=== PATIENT | female | born 1940 | race Caucasian/White ===

== ENCOUNTER 2022-01-29 16:14 | Inpatient (IN) | payer MEDICARE ==
--- NOTE | 2022-01-29 18:49 | ED ---
General Adult HPI - General Chief complaint: Weakness Stated complaint: Weakness,lower back pain Time Seen by Provider: 01/29/22 18:19 Source: patient Mode of arrival: ambulatory Limitations: no limitations - History of Present Illness Initial comments: This is an 81-year-old female with a past medical history including recently diagnosed metastatic bone cancer presents emergency Department with her son for increasing pain and discomfort in the lower pelvis secondary to the bone cancer. There is reported the patient has not been eating or drinking over the last several days and has been unable to sit upright secondary to pain. The patient's son stated that the patient was seen and evaluated by the oncologist yesterday however she stated that nothing else was done at this time. The pain medications were slightly changed at this time. The son felt as if the patient was not improving and was deteriorating in front of his eyes without any ass istance being done. The patient was brought in by the son for a second opinion and reevaluation here in the emergency department as well as a different oncology team. The patient herself reported continued pain on the inferior gluteal folds as a spot of continued pain. The patient stated that she has had an appetite and has not ate or drank in the last several days. The patient denied any other acute pain at this time. - Related Data Home Medications Medication Instructions Recorded Confirmed Hydrocodone/Acetaminophen 1 tab PO Q6H PRN 01/29/22 01/29/22 [Hydrocodone/Acetaminophen 5-325] Meloxicam [Mobic] 15 mg PO DAILY 01/29/22 01/29/22 traMADol HCL 50 mg PO TID 01/29/22 01/29/22 Allergies Allergy/AdvReac Type Severity Reaction Status Date / Time No Known Allergies Allergy Verified 01/29/22 20:08 Review of Systems ROS Statement: Those systems with pertinent positive or pertinent negative responses have been documented in the HPI. ROS Other: All systems not noted in ROS Statement are negative. Past Medical History Past Medical History: Cancer Additional Past Medical History / Comment(s): kidney disease, History of Any Multi-Drug Resistant Organisms: None Reported Past Surgical History: No Surgical Hx Reported Past Psychological History: No Psychological Hx Reported Smoking Status: Never smoker Past Alcohol Use History: None Reported Past Drug Use History: None Reported General Exam Limitations: no limitations General appearance: alert, in no apparent distress Head exam: Present: atraumatic, normocephalic Eye exam: Present: normal appearance, PERRL Pupils: Present: normal accommodation ENT exam: Present: normal exam, normal oropharynx, mucous membranes moist Neck exam: Present: normal inspection, full ROM Respiratory exam: Present: normal lung sounds bilaterally Cardiovascular Exam: Present: regular rate, normal rhythm, normal heart sounds GI/Abdominal exam: Present: soft, normal bowel sounds Extremities exam: Present: normal inspection, full ROM Back exam: Present: normal inspection, full ROM, tenderness (Tenderness noted to the inferior lower portion of the posterior pelvis at the posterior aspect of the proximal femur on the right side) Neurological exam: Present: alert, oriented X3, CN II-XII intact Psychiatric exam: Present: normal affect, normal mood Skin exam: Present: warm, dry Course Vital Signs 01/29/22 17:57 Temperature 98 F Pulse Rate 135 H Respiratory 18 Rate Blood Pressure 121/71 O2 Sat by Pulse 96 Oximetry EKG Findings - EKG Comments: EKG Findings:: An EKG was obtained was read by myself. EKG showed a rate of 114, LA interval of 125 and QRS duration of 89. He QTC was 36. This EKG showed a sinus tachycardia without any ST segment elevations or depressions noted. Medical Decision Making - Medical Decision Making The patient was seen and evaluated emergency department. Physical exam, the pat ient was resting in bed without any acute distress. Vital signs admission were stable and within normal limits. The patient was tachycardic on arrival however on my evaluation her heart rate was 98. Due to the nature the patient's complaints, laboratory workup was obtained and a computed tomography scan of the abdomen and pelvis was obtained for a baseline as I could not see any old records at this time. The patient as well as her son were told due to the patient stated thrive that the patient could be admitted to the hospital and will be seen by oncology. Laboratory workup was largely within normal limits. Computed tomography scan was still pending at this time. The patient is not be ing followed by her primary care physician here in the area and will be covered by [facility]. Whitney Kimbrough was contacted at 1943 accepted the patient for admission. Oncology was placed and consul at this time. The patient's son and patient were told this plan and were agreeable. The patient was admitted in stable condition. - Lab Data Result diagrams: 01/29/22 18:33 Lab Results 01/29/22 01/29/22 01/29/22 Range/Units 18:33 18:33 19:36 Sodium 140 (137-145) mmol/L Potassium 4.6 (3.5-5.1) mmol/L Chloride 103 (98-107) mmol/L Carbon Dioxide 27 (22-30) mmol/L Anion Gap 10 mmol/L BUN 21 H (7-17) mg/dL Creatinine 0.75 (0.52-1.04) mg/dL Est GFR (CKD-EPI)AfAm 85 (>60 ml/min/1.73 sqM) Est GFR (CKD-EPI)NonAf 74 (>60 ml/min/1.73 sqM) Glucose 104 H (74-99) mg/dL Calcium 9.5 (8.4-10.2) mg/dL Magnesium 2.2 (1.6-2.3) mg/dL Total Bilirubin 1.0 (0.2-1.3) mg/dL AST 45 H (14-36) U/L ALT 17 (4-34) U/L Alkaline Phosphatase 379 H (38-126) U/L Troponin I 0.021 (0.000-0.034) ng/mL NT-Pro-B Natriuret Pep 449 pg/mL Total Protein 7.2 (6.3-8.2) g/dL Albumin 4.0 (3.5-5.0) g/dL Lipase 98 (23-300) U/L Disposition Clinical Impression: Failure to thrive, Metastatic cancer Disposition: ADMITTED IP TO [facility] Condition: Stable Is patient prescribed a controlled substance at d/c from ED?: No Referrals: Jose Juan Waters MD [Primary Care Provider] - 1-2 days Time of Disposition: 19:43 Decision to Admit Reason: Admit from EC Decision Date: 01/29/22 Decision Time: 19:43
[2022-01-29 19:20] LABS: Calcium 9.5 mg/dL (8.4-10.2); Magnesium 2.2 mg/dL (1.6-2.3); Potassium 4.6 mmol/L (3.5-5.1); Total Protein 7.2 g/dL (6.3-8.2)
--- NOTE | 2022-01-29 19:50 | XR ---
EXAMINATION TYPE: XR chest 2V DATE OF EXAM: 01/29/2022 COMPARISON: NONE HISTORY: Weakness TECHNIQUE: 2 views FINDINGS: There is no heart failure nor confluent pneumonic infiltrate. Heart size is normal. There a re no hilar masses. Costophrenic angles show no pleural fluid. There is mild subsegmental atelectasis left lung base. IMPRESSION: Minimal subsegmental atelectasis left lung base.
[2022-01-29] MEDS ORDERED: NALOXONE 0.4 MG/ML 1 ML VIAL IV PRN (19:53)
--- NOTE | 2022-01-29 21:06 | CT ---
EXAMINATION TYPE: CT abdomen pelvis w con DATE OF EXAM: 01/29/2022 COMPARISON: None HISTORY: pelvic pain. recent metastatic ca dx CT DLP: 715.9 mGycm Automated exposure control for dose reduction was used. CONTRAST: Performed with IV Contrast, patient injected with 90 mL of Isovue 300. Images obtained from the diaphragm to the floor of the pelvis with the IV contrast. There is mild left pleural effusion. There is some interstitial infiltrate and atelectasis at the pos terior lung bases. Heart size is normal. No pericardial effusion. Liver and spleen are intact. The bile ducts are not dilated. There is large gallbladder that measures 4.5 cm in diameter. There is no evidence of pancreatic mass. Stomach is intact. There is no adrenal mass. Kidneys show satisfactory contrast opacification. No hydronephrosis. Ureter s are not dilated. Delayed images show normal renal excretion. There is a dilated rectum with apparen t fecal impaction. Rectum measures 7.6 cm. There is dilated urinary bladder that measures 17 cm in le ngth. No mesenteric edema. No ascites or free air. There are some colonic diverticula without diverticuliti s. There is patchy osteosclerotic changes in the lumbar spine and bony pelvis. There is mild compression deformity at L3 and L2 up to 20%. There is T10 wedging 50%. This could be pathologic fracture. There is patchy lucency. IMPRESSION: Dilated urinary bladder. Mildly dilated gallbladder. No dilated ducts. Patchy atelectasis and interst itial infiltrate in the lung bases with left pleural effusion. Osteolytic and osteoblastic changes in the spine and pelvis suggestive of metastatic disease.
[2022-01-29] MEDS ORDERED: HYDROmorphone 1 MG/ML 1 ML SYRINGE IVP STA (21:51)
[2022-01-29 22:05] LABS: Appearance,Urine Clear (Clear); Bilirubin,Urine Negative (Negative); Blood,Urine Negative (Negative); Color,Urine Yellow; Glucose,Urine (UA) Negative (Negative); Ketones,Urine 1+ (Negative); Leukocyte Esterase,Urine Negative (Negative); Nitrite,Urine Negative (Negative); Protein,Urine Trace (Negative)
[2022-01-29 22:09] LABS: Specific Gravity,Urine >1.050 (1.001-1.035)
[2022-01-29] MEDS: SODIUM CHLORIDE 0.9% 1,000 ML IV SCH (22:37)
[2022-01-30] MEDS ORDERED: HYDROmorphone 1 MG/ML 1 ML SYRINGE IVP STA (05:22)
[2022-01-30] MEDS: SODIUM CHLORIDE 0.9% 1,000 ML IV SCH (05:38)
[2022-01-30 06:19] LABS: Anisocytosis Slight; Basophils % (A) 1 %; Eosinophils # (A) 0.1 k/uL (0-0.7); Eosinophils % (A) 2 %; HCT 33.8 % (34.0-46.0); HGB 10.9 gm/dL (11.4-16.0); Hypochromasia Moderate; Lymphocytes # (A) 1.3 k/uL (1.0-4.8); Lymphocytes % (A) 21 %; MCH 32.5 pg (25.0-35.0); MCHC 32.3 g/dL (31.0-37.0); MCV 100.7 fL (80.0-100.0); Macrocytosis Slight; Monocytes # (A) 0.4 k/uL (0-1.0); Monocytes % (A) 7 %; Neutrophils # (A) 4.1 k/uL (1.3-7.7); Neutrophils % (A) 69 %; Platelet Count 270 k/uL (150-450); RBC 3.35 m/uL (3.80-5.40); RDW 16.8 % (11.5-15.5)
[2022-01-30] MEDS: HYDROmorphone 0.5 MG/0.5 ML SYRINGE IVP PRN ×2 (13:48→20:38)
[2022-01-30] MEDS: PANTOPRAZOLE 40 MG/10 ML VIAL IVP SCH ×2 (13:54→20:38)
[2022-01-30] MEDS: HEPARIN SODIUM,PORCINE/PF 5,000 UNIT/0.5 ML SYRINGE SQ SCH ×2 (13:54→20:38)
[2022-01-30 15:26] VITALS: BMI 20.2
--- NOTE | 2022-01-31 00:12 | P.CONS ---
History of Present Illness - Reason for Consult Consult date: 01/30/22 bone metastasis, failure to thrive - History of Present Illness the patient is a 81-year-old white female, who came to the emergency room because of complains of pain in the lower back and pelvis that has been present for at least 2 months. At the time of my evaluation no other family was present. The patient is a somewhat poor historian. She states that initially when the pain started she was evaluated and was told that it was because of her kidneys. She states that she was subsequently told that she had cancer in her bones. According to her she has been worked up by her primary care physician, and her oncologist in the [place] area and has had "every test known to man" but a diagnosis has not yet been established. The patient was not clear about what kind of imaging studies have been performed on her, and we're other than the fact that she had a PET scan yesterday at the [facility]the [facility]. On being questioned about a biopsy she stated that she had a bone marrow biopsy. apparently she did see her oncologist within the last couple of days, but states that she and her family were frustrated as her symptoms had become more prominent over the last week or so and she is still didn't have a definite answer. She states that her appetite has been poor and she has lost about 15 pounds. Over the last few days she has been having increasing difficulty sitting and walking because of the pain. She was therefore admitted for further management. chest x-ray here showed minimal subsegmental atelectasis at the bases. CT of the abdomen and pelvis showed some nonspecific dilation of the gallbladder and urinary bladder, as well as atelectasis and small pleural effusions. There was evidence of patchy sclerotic changes in the spine and pelvis concerning for metastasis. The patient stated that a significant portion of her workup had been performed in the [facility] system. Her records were accessed in the [facility] EMR. Pertinent findings included x-rays of the back showing lucencies and compression fractures in the lower T-spine and L-spine. MRI of the spine had shown innumerable osseous metastasis involving the spine, and the pelvis. There was no evidence of cord compression. 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 Light chain results were not available. PET scan had been performed on 02/09/22 but results are not yet available. The above-mentioned workup that his MRI, x-rays and labs had been done at the end of 12/20. Review of Systems Constitutional: Reports chronic pain, Reports fatigue, Reports poor appetite, Reports weakness Eyes: denies blurred vision, denies pain Ears: deny: decreased hearing, ear discharge, earache, tinnitus Ears, nose, mouth and throat: Denies headache, Denies sore throat Cardiovascular: Reports decreased exercise tolerance Respiratory: Denies cough Gastrointestinal: Reports constipation Genitourinary: Reports urinary frequency Menstruation: Reports postmenopausal Musculoskeletal: Reports as per HPI, Reports low back pain, Reports muscle weakness Integumentary: Denies pruritus, Denies rash Neurological: Reports weakness Psychiatric: Reports anxiety, Reports irritability Endocrine: Reports fatigue, Reports weight change Hematologic/Lymphatic: Reports as per HPI Past Medical History Past Medical History: Cancer Additional Past Medical History / Comment(s): Bone CA with no treatment. History of Any Multi-Drug Resistant Organisms: None Reported Past Surgical History: No Surgical Hx Reported Past Anesthesia/Blood Transfusion Reactions: No Reported Reaction Past Psychological History: No Psychological Hx Reported Smoking Status: Never smoker Past Alcohol Use History: None Reported Past Drug Use History: None Reported Medications and Allergies Home Medications Medication Instructions Recorded Confirmed Type Hydrocodone/Acetaminophen 1 tab PO Q6H PRN 01/29/22 01/29/22 History [Hydrocodone/Acetaminophen 5-325] Meloxicam [Mobic] 15 mg PO DAILY 01/29/22 01/29/22 History traMADol HCL 50 mg PO TID 01/29/22 01/29/22 History Allergies Allergy/AdvReac Type Severity Reaction Status Date / Time lemon Allergy Rash/Hives Verified 01/30/22 15:16 peppermint Allergy Rash/Hives Verified 01/30/22 15:16 Physical Exam Vitals: Vital Signs Temp Pulse Pulse Resp BP BP Pulse Ox 01/30/22 19:09 98.5 F 95 14 154/78 95 01/30/22 14:45 97.9 F 90 18 151/83 95 01/30/22 12:33 77 16 151/71 99 01/30/22 08:54 85 15 141/75 98 01/30/22 01:56 97.6 F 82 16 125/66 96 Intake and Output 01/30/22 01/30/22 01/30/22 06:59 14:59 22:59 Other: Voiding Method Toilet # Voids 1 Weight 51.71 kg - Constitutional General appearance: no acute distress - EENT Eyes: EOMI, PERRLA ENT: hearing grossly normal, normal oropharynx - Neck Neck: no lymphadenopathy Thyroid: bilateral: normal size - Respiratory Respiratory: bilateral: CTA - Cardiovascular Rhythm: regular Heart sounds: normal: S1, S2 - Gastrointestinal General gastrointestinal: normal bowel sounds, soft - Integumentary Integumentary: normal - Neurologic Neurologic: CNII-XII intact - Musculoskeletal Musculoskeletal: generalized weakness, strength equal bilaterally - Psychiatric Psychiatric: A&O x's 3, appropriate affect Results CBC & Chem 7: 01/30/22 05:47 01/29/22 18:33 Labs: Abnormal Lab Results - Last 24 Hours (Table) 01/30/22 Range/Units 05:47 RBC 3.35 L (3.80-5.40) m/uL Hgb 10.9 L (11.4-16.0) gm/dL Hct 33.8 L (34.0-46.0) % MCV 100.7 H (80.0-100.0) fL RDW 16.8 H (11.5-15.5) % Comments: MRI spine, spine x ray he reports in [facility] EMR reviewed Chest x-ray: report reviewed CT scan - abdomen: report reviewed CT scan - pelvis: report reviewed Assessment and Plan (1) Metastatic cancer Narrative/Plan: the patient was diagnosed with bone lesions extensively involving the spine, and pelvis on MRI in late 12/20. It appears that she has had extensive workup without a definite diagnosis so far. From the available history, with its limitations, it appears myeloma was suspected due to which the patient had a bone marrow aspiration biopsy. Myeloma would be considered less likely anyway given the low level of the monoclonal protein which is more in the range of MGUS. The bone marrow report is not available to us but according to the patient this was not diagnostic either - therefore at this time it doesn't appear that he have the actual pathology diagnosis. The patient had a PET scan done yesterday at [facility]. Those reports will be reviewed when available. Based on that, the tissue diagnosis can be obtained from most appropriate target. - Symptomatic management in the meantime. Current Visit: Yes Status: Acute Code(s): C79.9 - SECONDARY MALIGNANT NEOPLASM OF UNSPECIFIED SITE SNOMED Code(s): 151559135
[2022-01-31] MEDS: SODIUM CHLORIDE 0.9% 1,000 ML IV SCH ×2 (01:24→12:49)
[2022-01-31] MEDS: HYDROmorphone 0.5 MG/0.5 ML SYRINGE IVP PRN ×3 (01:38→19:32)
--- NOTE | 2022-01-31 04:24 | HP ---
HISTORY AND PHYSICAL CHIEF COMPLAINT: Abdominal distention, pain as well as weakness. HISTORY OF PRESENT ILLNESS: This 81-year-old woman with a past medical history of multiple medical problems, recently diagnosed with apparently metastatic cancer and mets to the bone. The patient has been evaluated elsewhere by Dr. Waters. The patient has presented to [facility] with complaints of severe abdominal pain, back pain, weakness, inability to eat, and multiple other complaints. So, the patient was admitted for further evaluation and treatment. There is no history of any fever, rigors, or chills at this time. PAST MEDICAL HISTORY: Reviewed and include malignancy. The rest of the history and whole chart is reviewed. HOME MEDICATIONS: Include Ultram. Dose and rest of medications reviewed. ALLERGIES: None. FAMILY HISTORY: No history of heart disease or strokes in the family. SOCIAL HISTORY: No history of smoking or alcohol intake. REVIEW OF SYSTEMS: 14-point review of systems is negative as mentioned earlier. PHYSICAL EXAMINATION: VITAL SIGNS: Pulse 82, blood pressure 120/86, respirations 16. HEENT: Conjunctivae normal. NECK: No JVD. CARDIOVASCULAR: S1, S2. RESPIRATION: Clear to auscultation. ABDOMEN: Soft and distended. Mild diffuse tenderness present. No ascites. LEGS: No edema. No swelling. NERVOUS SYSTEM: Nonfocal. There is mild diffuse weakness and wasting. LEGS: No edema. SKIN: No ulcer, rash, or bleeding. LABORATORY DATA: Reviewed. ASSESSMENT: 1. Metastatic malignancy. 2. Severe bone pain with failure of outpatient treatment. 3. Weakness and severe protein-calorie malnutrition. RECOMMENDATIONS: This 81-year-old woman presented with multiple complex medical issues. At this time, I recommend to continue the current medications and symptomatic treatment for the pain and repeat evaluations, repeat cultures, to facilitate p.o. healing. The patient is requesting TPN at this time, but however, we will continue to monitor, and Hematology/Oncology consultation was obtained. We will try to obtain the old records from other hospitals, and further recommendations to follow. Prognosis guarded. Discussed with the patient. See orders for further details. DVT prophylaxis. MMODL / IJN: [id number] / MTDD
[2022-01-31] MEDS: MEGESTROL 400 MG/10 ML CUP PO SCH (08:01)
[2022-01-31] MEDS: HEPARIN SODIUM,PORCINE/PF 5,000 UNIT/0.5 ML SYRINGE SQ SCH ×2 (08:01→20:43)
[2022-01-31] MEDS: PANTOPRAZOLE 40 MG/10 ML VIAL IVP SCH ×2 (08:01→20:43)
[2022-01-31] MEDS: HYDROcodone/APAP 5-325MG 1 EACH TAB PO PRN (18:08)
[2022-01-31] MEDS: DOCUSATE 100 MG CAP PO SCH (20:43)
[2022-02-01] MEDS: HYDROcodone/APAP 5-325MG 1 EACH TAB PO PRN (00:08)
[2022-02-01] MEDS: SODIUM CHLORIDE 0.9% 1,000 ML IV SCH ×2 (03:27→20:02)
[2022-02-01] MEDS: HYDROmorphone 0.5 MG/0.5 ML SYRINGE IVP PRN ×4 (03:27→21:55)
--- NOTE | 2022-02-01 04:55 | HP ---
HISTORY AND PHYSICAL SUBJECTIVE: This 81-year-old woman was admitted with possible metastatic malignancy versus multiple myeloma, is being closely monitored. Appetite seems to be slightly better. No chest pain. No palpitation. PHYSICAL EXAMINATION: VITAL SIGNS: Pulse 82, blood pressure ntd respirations 14. CHEST: Clear to auscultation. ABDOMEN: Soft, distended. NERVOUS SYSTEM: Diffusely weak. LABS: Noted. ASSESSMENT: 1. Possible metastatic malignancy versus multiple myeloma. 2. Severe weakness. 3. Severe bone pain and failure of outpatient treatment, weakness and severe protein calorie malnutrition. RECOMMENDATION AND DISCUSSION: Recommend to continue the current medications, symptomatic treatment. Close followup with Hematology/Oncology. Await reports from elsewhere. Prognosis guarded. Further recommendations to follow. MMODL / IJN: [id number] / MTDaPresh
[2022-02-01] MEDS: DOCUSATE 100 MG CAP PO SCH ×2 (09:34→19:57)
[2022-02-01] MEDS: PANTOPRAZOLE 40 MG/10 ML VIAL IVP SCH ×2 (09:34→19:58)
[2022-02-01] MEDS: HEPARIN SODIUM,PORCINE/PF 5,000 UNIT/0.5 ML SYRINGE SQ SCH ×2 (09:34→19:57)
[2022-02-01] MEDS: MEGESTROL 400 MG/10 ML CUP PO SCH (09:57)
[2022-02-01] MEDS: HYDROcodone/APAP 7.5-325MG 1 EACH TAB PO PRN ×2 (12:44→19:57)
--- NOTE | 2022-02-01 14:22 | P.PN ---
Subjective Progress Note Date: 02/01/22 02/01/2022 This is a 81 year old female who was admitted with uncontrolled pain and undergoing testing with recent diagnosis of metastatic malignancy versus multiple myeloma. Patient has had testing done at other facilities outpatient and awaiting results. Patient with uncontrolled pain and overall weakness with decreased appetite. Patient was started on Marinol and have also made adjustments to pain medications. Encouraged increased activity as tolerated and awaiting PT/OT evaluation. ONcology following and awaiting medical records. Afebrile and denies chest pain or shortness of breath. Continue gentle hydration and encouraged oral intake. Will order repeat am labs. Review of systems: Constitutional: reports of fatigue, no fever, or chills Cardiovascular: No reports of chest pain or palpitations Respiratory: noreports of shortness of breath and cough GI: no reports of nausea, no vomiting, or diarrhea, reports no appetite : No reports of dysuria or retention Neurovascular: reports of generalized weakness and overall body aches and pain All medications have been reviewed PHYSICAL EXAMINATION: GENERAL: The patient is alert and oriented x4, Well developed, well nourished. HEENT: Pupils are round and equally reacting to light. EOMI. no scleral icterus. No conjunctival pallor. Normocephalic, atraumatic. No pharyngeal erythema. No thyromegaly. CARDIOVASCULAR: S1 and S2 muffled PULMONARY: diminished breath sounds bilaterally with some scattered rhonchi noted. ABDOMEN: soft. mildly tender. distended, normoactive bowel sounds. No palpable organomegaly. MUSCULOSKELETAL: No joint swelling or deformity. EXTREMITIES: No cyanosis, clubbing, or pedal edema. muscle wasting noted NEUROLOGICAL: Gross neurological examination did not reveal any focal deficits. diffuse weakness SKIN: No rashes. Assessment: Possible metastatic malignancy versus multiple myeloma Severe weakness Severe bone pain with failure of outpatient treatment Gait dysfunction Severe protein calorie malnutrition with a bmi of 20.2 GI prophylaxis DVT prophylaxis Full code Plan: Recommend to continue with current medications and management with oncology following. Patient recently underwent outpatient testing and awaiting results to discuss possible treatment options. Pain is currently not in control and will adjust medications. Patient not eating well and have added marinol. Encouraged oral intake. Patient encouraged to increase activity as tolerated. Patient with weakness and will have PT/OT evaluate the patient. Will discuss with social work with possible ECF. Due to multiple complex medical issues, prognosis is guarded. The impression and plan of care has been dictated as a scribe by Deepa Hill, nurse practitioner as directed. Dr. Anant MD I have performed a history and examination and MDM of this patient, discussed the same with the dictator, and will be documented as a scribe. Based on total visit time, I have performed more than 50% of the visit. Any additional findings or plans will be noted. Objective - Vital Signs Vital signs: Vital Signs Temp 98.5 F 02/01/22 03:53 Pulse 71 02/01/22 03:53 Resp 14 02/01/22 03:53 BP 116/70 02/01/22 03:53 Pulse Ox 95 02/01/22 03:53 FiO2 Intake & Output 01/31/22 02/01/22 02/01/22 18:59 06:59 18:59 Other: Voiding Method Toilet # Voids 2 1 1 - Labs CBC & Chem 7: 01/30/22 05:47 01/29/22 18:33
[2022-02-02] MEDS: HYDROcodone/APAP 7.5-325MG 1 EACH TAB PO PRN ×4 (02:32→21:50)
[2022-02-02] MEDS: HYDROmorphone 0.5 MG/0.5 ML SYRINGE IVP PRN ×3 (05:12→23:52)
[2022-02-02] MEDS: SODIUM CHLORIDE 0.9% 1,000 ML IV SCH ×2 (05:17→12:15)
[2022-02-02] MEDS: MEGESTROL 400 MG/10 ML CUP PO SCH (08:39)
[2022-02-02] MEDS: HEPARIN SODIUM,PORCINE/PF 5,000 UNIT/0.5 ML SYRINGE SQ SCH ×2 (08:40→21:02)
[2022-02-02] MEDS: DOCUSATE 100 MG CAP PO SCH ×2 (08:40→21:03)
[2022-02-02] MEDS: PANTOPRAZOLE 40 MG/10 ML VIAL IVP SCH ×2 (08:40→21:03)
[2022-02-02 10:34] LABS: African American GFR (CKD) 83.8 (60.0-200.0); Albumin 3.1 g/dL (3.8-4.9); Albumin/Globulin Ratio 1.3 (1.60-3.17); BUN/Creat Ratio 15.35 Ratio (12.00-20.00); Blood Urea Nitrogen 11.7 mg/dL (9.0-27.0); Globulin 2.4 g/dL (1.6-3.3); Non-African American GFR(CKD) 72.3 (60.0-200.0); Potassium 3.5 mmol/L (3.5-5.5); Total Bilirubin 0.5 mg/dL (0.30-1.20); Total Protein 5.5 g/dL (6.2-8.2)
[2022-02-02] MEDS ORDERED: bisacodyL 10 MG SUPP RECTAL STA (15:31)
[2022-02-03] MEDS: HYDROcodone/APAP 7.5-325MG 1 EACH TAB PO PRN ×2 (03:56→11:17)
--- NOTE | 2022-02-03 05:17 | P.PN ---
Subjective Progress Note Date: 02/02/22 02/01/2022 This is a 81 year old female who was admitted with uncontrolled pain and undergoing testing with recent diagnosis of metastatic malignancy versus multiple myeloma. Patient has had testing done at other facilities outpatient and awaiting results. Patient with uncontrolled pain and overall weakness with decreased appetite. Patient was started on Marinol and have also made adjustments to pain medications. Encouraged increased activity as tolerated and awaiting PT/OT evaluation. ONcology following and awaiting medical records. Afebrile and denies chest pain or shortness of breath. Continue gentle hydration and encouraged oral intake. Will order repeat am labs. 02/02/2022 She is seen in follow-up today with reports of continued pain. Patient also reports that she has not had a bowel movement in 5 days and will add laxatives including suppository. Encouraged oral intake and increased activity as tolerated. Patient to be seen by PT/OT. Possible ECF being planned. Son requesting hospice informational. Reports of being unable to care for her in the home as he is leaving out of the country for a few months. Patient is demanding a diagnosis and better pain control while here inpatient. Reports from [place] continue to be pending. Oncology following and awaiting reports as well as she was following outside of the system for testing. Patient is afebrile and denies chest pain or shortness of breath. No reports of nausea or vomiting just not much of an appetite. Started on Marinol. Case management following. Review of systems: Constitutional: reports of fatigue, no fever, or chills Cardiovascular: No reports of chest pain or palpitations Respiratory: noreports of shortness of breath and cough GI: no reports of nausea, no vomiting, reports no bm in 5 days, reports no appetite, : No reports of dysuria or retention Neurovascular: reports of generalized weakness and overall body aches and pain All medications have been reviewed PHYSICAL EXAMINATION: GENERAL: The patient is alert and oriented x4, Well developed, well nourished. HEENT: Pupils are round and equally reacting to light. EOMI. no scleral icterus. No conjunctival pallor. Normocephalic, atraumatic. No pharyngeal erythema. No thyromegaly. CARDIOVASCULAR: S1 and S2 muffled PULMONARY: diminished breath sounds bilaterally with some scattered rhonchi noted. ABDOMEN: soft. mildly tender. distended, normoactive bowel sounds. No palpable organomegaly. MUSCULOSKELETAL: No joint swelling or deformity. EXTREMITIES: No cyanosis, clubbing, or pedal edema. muscle wasting noted NEUROLOGICAL: Gross neurological examination did not reveal any focal deficits. diffuse weakness SKIN: No rashes. 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 Patient recently underwent outpatient testing and awaiting results to discuss possible treatment options. Records and results pending from the [facility] system. Pain is currently not in control and will adjust medications. Patient not eating well and have added marinol. Encouraged oral intake. Patient reports no bowel movement in 5 days and will add suppository. Patient encouraged to increase activity as tolerated. Patient with weakness and recommend PT/OT daily. Will discuss with social work with possible ECF. Son requesting informational hospice consult. Referral placed. Due to multiple complex medical issues, prognosis is guarded. The impression and plan of care has been dictated by Deepa Hill, Nurse Practitioner as directed. Dr. Aden MD I have performed a history and examination and MDM of this patient, discussed the same with the dictator, and agree with the dictator's assessment and plan as written ,documented as a scribe. Based on total visit time, I have performed more than 50% of the visit. Objective - Vital Signs Vital signs: Vital Signs Temp 98 F 02/02/22 04:36 Pulse 85 02/02/22 04:36 Resp 16 02/02/22 04:36 BP 129/84 02/02/22 04:36 Pulse Ox 95 02/02/22 04:36 FiO2 Intake & Output 02/01/22 02/02/22 02/02/22 18:59 06:59 18:59 Other: Voiding Method Toilet # Voids 1 3 - Labs CBC & Chem 7: 01/30/22 05:47 02/02/22 05:16 Labs: Abnormal Lab Results - Last 24 Hours (Table) 02/02/22 Range/Units 05:16 Alkaline Phosphatase 350 H (41-126) U/L Total Protein 5.5 L (6.2-8.2) g/dL Albumin 3.1 L (3.8-4.9) g/dL Albumin/Globulin Ratio 1.30 L (1.60-3.17) g/dL
[2022-02-03] MEDS: HYDROmorphone 0.5 MG/0.5 ML SYRINGE IVP PRN ×2 (07:43→19:45)
[2022-02-03] MEDS: HEPARIN SODIUM,PORCINE/PF 5,000 UNIT/0.5 ML SYRINGE SQ SCH ×2 (07:43→19:42)
[2022-02-03] MEDS: DOCUSATE 100 MG CAP PO SCH (07:44)
[2022-02-03] MEDS: MEGESTROL 400 MG/10 ML CUP PO SCH (07:44)
[2022-02-03] MEDS: PANTOPRAZOLE 40 MG/10 ML VIAL IVP SCH ×2 (07:44→19:41)
--- NOTE | 2022-02-03 17:52 | P.PN ---
Subjective Progress Note Date: 02/03/22 Principal diagnosis: Intractable pain, failure to thrive When seen today pt reports that her pain is in her lower pelvis/tailbone area, when she takes the pain pill it helps the pain for a short period of time. She does not report a recent BM. Objective - Vital Signs Vital signs: Vital Signs Temp 98 F 02/03/22 11:35 Pulse 98 02/03/22 11:35 Resp 18 02/03/22 11:35 BP 134/79 02/03/22 11:35 Pulse Ox 97 02/03/22 11:35 FiO2 Intake & Output 02/02/22 02/03/22 02/03/22 18:59 06:59 18:59 Output Total 1 Balance -1 Weight 51.71 kg Output: Urine 1 Other: Voiding Method Toilet # Voids 2 2 1 # Bowel Movements 0 1 - Constitutional General appearance: Present: average body habitus, cooperative, no acute distress - EENT Eyes: Present: anicteric sclerae, EOMI ENT: Present: hearing grossly normal - Respiratory Respiratory: bilateral: CTA - Cardiovascular Rhythm: regular Heart sounds: normal: S1, S2 Abnormal Heart Sounds: Absent: systolic murmur, diastolic murmur, rub, S3 Gallop, S4 Gallop, click, other - Gastrointestinal General gastrointestinal: Present: normal bowel sounds, soft - Musculoskeletal Musculoskeletal: Present: generalized weakness - Psychiatric Psychiatric: Present: A&O x's 3, appropriate affect, intact judgment & insight - Labs CBC & Chem 7: 01/30/22 05:47 02/02/22 05:16 Assessment and Plan (1) Failure to thrive Current Visit: Yes Status: Acute Priority: High Code(s): [id number] - SNOMED Code(s): 90467330 Plan: Still awaiting some documents to determine what was being worked up, what was suspicious for cancer. PET scan was NEVER done, it was cancelled by the family. Small monoclonal protein on labs, nothing that would account for pt symptoms. Her labs are otherwise normal, mild anemia. 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 CT AP no suspicious masses. Reported osteolytic and osteoblastic changes the L spine and pelvis are reports suggestive of metastatic disease, possible compression fracture. Should consider Orthopedic Spine Surgical consult for evaluation and recommendations. Reviewed case with pt son on phone. Unfortunately, due to being seen at multiple hospitals and not following up with Physicians who have seen the pt there is a breakdown in communication of info. I have all the hospitals where pt has been in the last 3 mo. Will obtain all records and summarize Son reports that plan is for rehab, agree with plan. Will get scans and f/u with Dr. Hi scheduled for about 3-4 weeks from now. All of the above was discussed with pt as well. Time with Patient: Greater than 30
[2022-02-03] MEDS: HYDROcodone/APAP 10-325MG 1 EACH TAB PO PRN ×2 (18:06→22:19)
[2022-02-03] MEDS: SODIUM CHLORIDE 0.9% 1,000 ML IV SCH ×2 (18:07→19:42)
[2022-02-03] MEDS: SENNOSIDES-DOCUSATE SODIUM 1 EACH TAB PO SCH (19:46)
[2022-02-04] MEDS: HYDROcodone/APAP 10-325MG 1 EACH TAB PO PRN ×2 (04:40→16:27)
[2022-02-04] MEDS: SODIUM CHLORIDE 0.9% 1,000 ML IV SCH ×2 (04:41→22:32)
--- NOTE | 2022-02-04 05:22 | P.PN ---
Subjective Progress Note Date: 02/03/22 02/01/2022 This is a 81 year old female who was admitted with uncontrolled pain and undergoing testing with recent diagnosis of metastatic malignancy versus multiple myeloma. Patient has had testing done at other facilities outpatient and awaiting results. Patient with uncontrolled pain and overall weakness with decreased appetite. Patient was started on Marinol and have also made adjustments to pain medications. Encouraged increased activity as tolerated and awaiting PT/OT evaluation. ONcology following and awaiting medical records. Afebrile and denies chest pain or shortness of breath. Continue gentle hydration and encouraged oral intake. Will order repeat am labs. 02/02/2022 She is seen in follow-up today with reports of continued pain. Patient also reports that she has not had a bowel movement in 5 days and will add laxatives including suppository. Encouraged oral intake and increased activity as tolerated. Patient to be seen by PT/OT. Possible ECF being planned. Son requesting hospice informational. Reports of being unable to care for her in the home as he is leaving out of the country for a few months. Patient is demanding a diagnosis and better pain control while here inpatient. Reports from [place] continue to be pending. Oncology following and awaiting reports as well as she was following outside of the system for testing. Patient is afebrile and denies chest pain or shortness of breath. No reports of nausea or vomiting just not much of an appetite. Started on Marinol. Case management following. 02/03/2022 Patient is seen and evaluated in follow-up today and was given a suppository and reports to having a bowel movement. Patient continues to report pain that is not being controlled. [place] being increased. Encouraged limiting use of IV pain medications. Encouraged oral intake and increased activity as tolerated. Patient with significant weakness and muscle wasting and not eating very well with concerns of possible metastatic disease. Son Saul here today and with concerns of pain not being managed and options for treatment plan and possible ECF vs hospice being considered. Lengthy discussion was had with son, patient, and caser up at bedside. Patient has been recently going to multiple hospitals and not satisfied with the care receiving so came here to [facility] for evaluation. ONcology is following. Will consult ortho and appreciate input and r ecommendations. PT/OT to evaluate and possible ecf being planned. Review of systems: Constitutional: reports of fatigue, no fever, or chills Cardiovascular: No reports of chest pain or palpitations Respiratory: no reports of shortness of breath and cough GI: no reports of nausea, no vomiting, reports having a bowel movement today, reports no appetite : No reports of dysuria or retention Neurovascular: reports of generalized weakness and overall body aches and pain in the back and pelvis All medications have been reviewed PHYSICAL EXAMINATION: GENERAL: The patient is alert and oriented x4, Well developed, well nourished. HEENT: Pupils are round and equally reacting to light. EOMI. no scleral icterus. No conjunctival pallor. Normocephalic, atraumatic. No pharyngeal erythema. No thyromegaly. CARDIOVASCULAR: S1 and S2 muffled PULMONARY: diminished breath sounds bilaterally with some scattered rhonchi noted. ABDOMEN: soft. mildly tender. distended, normoactive bowel sounds. No palpable organomegaly. MUSCULOSKELETAL: No joint swelling or deformity. EXTREMITIES: No cyanosis, clubbing, or pedal edema. muscle wasting noted NEUROLOGICAL: Gross neurological examination did not reveal any focal deficits. diffuse weakness SKIN: No rashes. 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 Patient recently underwent outpatient testing and awaiting results to discuss possible treatment options. Records and results pending from the [place] system. Pain is currently not in control and will adjust medications. Patient not eating well and will continue marinol. Encouraged oral intake. Patient reports bowel movement today after suppository. Patient encouraged to increase activity as tolerated. Patient with weakness and recommend PT/OT daily. Discussed with patient, son, and case management in detail with possible ECF. Son requesting informational hospice consult. Referral placed. Patient is refusing hospice at this time and after long discussion is agreeable to rehab. Will consult ortho for input and recommendations regarding compression fractures. Will need follow up outpatient with Dr. Hi oncology once discharged from ECF. Due to multiple complex medical issues, prognosis is guarded. The impression and plan of care has been dictated by Deepa Hill Nurse Pr actitioner as directed. Dr. Aden MD I have performed a history and examination and MDM of this patient, discussed the same with the dictator, and agree with the dictator's assessment and plan as written ,documented as a scribe. Based on total visit time, I have performed more than 50% of the visit. Objective - Vital Signs Vital signs: Vital Signs Temp 98 F 02/03/22 11:35 Pulse 98 02/03/22 11:35 Resp 18 02/03/22 11:35 BP 134/79 02/03/22 11:35 Pulse Ox 97 02/03/22 11:35 FiO2 Intake & Output 02/02/22 02/03/22 02/03/22 18:59 06:59 18:59 Output Total 1 Balance -1 Weight 51.71 kg Output: Urine 1 Other: Voiding Method Toilet # Voids 2 2 1 # Bowel Movements 0 1 - Labs CBC & Chem 7: 01/30/22 05:47 02/02/22 05:16
[2022-02-04] MEDS: HYDROmorphone 0.5 MG/0.5 ML SYRINGE IVP PRN ×2 (09:08→20:27)
[2022-02-04] MEDS: PANTOPRAZOLE 40 MG/10 ML VIAL IVP SCH ×2 (09:09→20:21)
[2022-02-04] MEDS: HEPARIN SODIUM,PORCINE/PF 5,000 UNIT/0.5 ML SYRINGE SQ SCH ×2 (09:09→20:22)
[2022-02-04] MEDS: SENNOSIDES-DOCUSATE SODIUM 1 EACH TAB PO SCH ×2 (09:09→20:22)
[2022-02-04] MEDS: MEGESTROL 400 MG/10 ML CUP PO SCH (09:09)
--- NOTE | 2022-02-04 19:56 | P.PN ---
Subjective Progress Note Date: 02/04/22 02/01/2022 This is a 81 year old female who was admitted with uncontrolled pain and undergoing testing with recent diagnosis of metastatic malignancy versus multiple myeloma. Patient has had testing done at other facilities outpatient and awaiting results. Patient with uncontrolled pain and overall weakness with decreased appetite. Patient was started on Marinol and have also made adjustments to pain medications. Encouraged increased activity as tolerated and awaiting PT/OT evaluation. ONcology following and awaiting medical records. Afebrile and denies chest pain or shortness of breath. Continue gentle hydration and encouraged oral intake. Will order repeat am labs. 02/02/2022 She is seen in follow-up today with reports of continued pain. Patient also reports that she has not had a bowel movement in 5 days and will add laxatives including suppository. Encouraged oral intake and increased activity as tolerated. Patient to be seen by PT/OT. Possible ECF being planned. Son requesting hospice informational. Reports of being unable to care for her in the home as he is leaving out of the country for a few months. Patient is demanding a diagnosis and better pain control while here inpatient. Reports from [place] continue to be pending. Oncology following and awaiting reports as well as she was following outside of the system for testing. Patient is afebrile and denies chest pain or shortness of breath. No reports of nausea or vomiting just not much of an appetite. Started on Marinol. Case management following. 02/03/2022 Patient is seen and evaluated in follow-up today and was given a suppository and reports to having a bowel movement. Patient continues to report pain that is not being controlled. [place] being increased. Encouraged limiting use of IV pain medications. Encouraged oral intake and increased activity as tolerated. Patient with significant weakness and muscle wasting and not eating very well with concerns of possible metastatic disease. Son Saul here today and with concerns of pain not being managed and options for treatment plan and possible ECF vs hospice being considered. Lengthy discussion was had with son, patient, and case briefer at bedside. Patient has been recently going to multiple hospitals and not satisfied with the care receiving so came [facility]. ONcology is following. Will consult ortho and appreciate input and r ecommendations. PT/OT to evaluate and possible ecf being planned. 02/04/2022 Patient is seen and evaluated today reporting that her pain is somewhat better controlled on the larger dose of [place]. Patient continues to use IV pain medications as needed. Patient is reporting that her pain is waxing and waining but mostly getting more severe once the medication wears off. Patient reports of feeling tired. Encouraged the patient to get up out of bed and continue PT/OT therapy. Encouraged oral intake. Awaiting ortho consult. Afebrile and denies chest pain or shortness of breath. Case management following and discussing options of discharge with patient and ricardo Hughes. Review of systems: Constitutional: reports of fatigue, no fever, or chills Cardiovascular: No reports of chest pain or palpitations Respiratory: no reports of shortness of breath and cough GI: no reports of nausea, no vomiting, reports having a bowel movement today, reports no appetite : No reports of dysuria or retention Neurovascular: reports of generalized weakness and overall body aches and pain in the back and pelvis All medications have been reviewed PHYSICAL EXAMINATION: GENERAL: The patient is alert and oriented x3, Well developed, well nourished. HEENT: Pupils are round and equally reacting to light. EOMI. no scleral icterus. No conjunctival pallor. Normocephalic, atraumatic. No pharyngeal erythema. No thyromegaly. CARDIOVASCULAR: S1 and S2 muffled PULMONARY: diminished breath sounds bilaterally with some scattered rhonchi noted. ABDOMEN: soft. mildly tender. distended, normoactive bowel sounds. No palpable organomegaly. MUSCULOSKELETAL: No joint swelling or deformity. EXTREMITIES: No cyanosis, clubbing, or pedal edema. muscle wasting noted NEUROLOGICAL: Gross neurological examination did not reveal any focal deficits. diffuse weakness SKIN: No rashes. 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 Patient recently underwent outpatient testing and awaiting results to discuss possible treatment options. Records and results pending from the [facility] system. Pain is better controlled on higher dose [place]. Recommend limiting IV dilaudid. . Patient reports to eating a little better and will con tinue marinol. Encouraged oral intake. Patient reports bowel movement today . Patient encouraged to increase activity as tolerated. Patient with weakness and recommend PT/OT daily. Discussed with patient, son, and case management in detail with possible ECF. Son requesting informational hospice consult. Patient is refusing hospice at this time and after long discussion is agreeable to rehab. Difficulty with social issues as family (son) is refusing patient to discharge to his home and there are other options such as ECF or private pay and case management is following. Awaiting consult with ortho for input and recommendations regarding compression fractures. Will need follow up outpatient with Dr. Hi oncology once discharged from ECF. Patient needs outpatient PET scan. Due to multiple complex medical issues, prognosis is guarded. The impression and plan of care has been dictated by Deepa Hill, Nurse Practitioner as directed. Dr. Aden MD I have performed a history and examination and MDM of this patient, discussed the same with the dictator, and agree with the dictator's assessment and plan as written ,documented as a scribe. Based on total visit time, I have performed more than 50% of the visit. Objective - Vital Signs Vital signs: Vital Signs Temp 98.3 F 02/04/22 11:37 Pulse 83 02/04/22 11:37 Resp 15 02/04/22 11:37 BP 131/78 02/04/22 11:37 Pulse Ox 93 L 02/04/22 11:37 FiO2 Intake & Output 02/03/22 02/04/22 02/04/22 18:59 06:59 18:59 Intake Total 350 Balance 350 Weight 51.71 kg Intake: Oral 350 Other: Voiding Method Toilet Toilet # Voids 1 4 # Bowel Movements 1 - Labs CBC & Chem 7: 01/30/22 05:47 02/02/22 05:16
[2022-02-05] MEDS: HYDROcodone/APAP 10-325MG 1 EACH TAB PO PRN ×4 (00:35→20:05)
[2022-02-05] MEDS: HYDROmorphone 0.5 MG/0.5 ML SYRINGE IVP PRN ×2 (04:33→22:29)
--- NOTE | 2022-02-05 07:53 | P.CNOR ---
History of Present Illness - [facility] Consult date: 02/05/22 Consult reason: fracture History of present illness: 81 yo female with unknown cancer history is admitted for failure to thrive. Pt states no pain in her back today. She states she is somewhat weak when she stands and uses a walker to get around. She states no pain in her legs or abdomen. States no radiating pain at this time. She states no bowel or bladder issues. She denies any f/c/sob/cp at this time. She has been having issues with her back she states for 3 months, but currently she denies any issues. Review of Systems 14 points review of systems completed and as stated in HPI, all other systems reviewed are negative. Past Medical History Past Medical History: Cancer Additional Past Medical History / Comment(s): Bone CA with no treatment. History of Any Multi-Drug Resistant Organisms: None Reported Past Surgical History: No Surgical Hx Reported Past Anesthesia/Blood Transfusion Reactions: No Reported Reaction Past Psychological History: No Psychological Hx Reported Smoking Status: Never smoker Past Alcohol Use History: None Reported Past Drug Use History: None Reported Medications and Allergies Home Medications Medication Instructions Recorded Confirmed Type Hydrocodone/Acetaminophen 1 tab PO Q6H PRN 01/29/22 01/29/22 History [Hydrocodone/Acetaminophen 5-325] Meloxicam [Mobic] 15 mg PO DAILY 01/29/22 01/29/22 History traMADol HCL 50 mg PO TID 01/29/22 01/29/22 History Allergies Allergy/AdvReac Type Severity Reaction Status Date / Time lemon Allergy Rash/Hives Verified 01/30/22 15:16 peppermint Allergy Rash/Hives Verified 01/30/22 15:16 Physical Examination Osteopathic Statement: *. No significant issues noted on an osteopathic struct ural exam other than those noted in the History and Physical/Consult. PHYSICAL EXAMINATION: Vitals: stable General: Awake, alert, appropriate for age, in no acute distress. HEENT: No unusual neck masses around region of lateral neck triangle, thyroid, supraclavicular groove. Extremities: Skin warm and dry without no acute lesions, coloration, temperature, skin intact, no tenderness or erythema. Integument: normal color and turgor Palpation: Please see Pain drawing on Intake sheet for further detail. (Tenderness = T, Nontender = NT, Swelling = S, Ecchymosis = E) Findings on Midline and paraspinal palpation and percussion: Cervical: NT Thoracic: NT Lumbar: NT Sacral: NT Special findings: negative ballottement throughout the spine she is increased kyphotic alignment overall. POSTURAL and MUSCULO-SKELETAL EVALUATION: Coronal Balance: Neutral Recumbent testing: Patient can lay flat on back Sagittal Balance: positive VASCULAR STATUS : Wrist Pulses: [2/4 bilateral radial and ulnar] Pedal Pulses: [2/4 bilateral DP and PT] Color: [Normal] Edema: [None] NEUROLOGIC EXAMINATION: Mental Status: Awake and alert, fully oriented, with normal attention, concentration and memory, and fluent, appropriate speech. Cranial Nerves: I: Olfactory not tested. II: Visual acuity normal, no visual field deficit noted with confrontation. III,IV: Normal pupillary reflexes & intact extraocular movements without nyst agmus. V,: Intact symmetrical facial sensation. VII: Intact symmetrical facial motor movement VIII: Hearing intact. IX,X: Intact gag, swallow, & normal voice. XI: Sternocleidomastoid, trapezius function intact. XII: Tongue midline with normal movements. Special Tests: L'hermitte's Sign: Absent Straight Leg Raising: Absent Bilateral Motor Exam (0-5/5, N/T) STRENGTH UPPER EXTREMITY [5]/5 in all major muscle groups of the UE b/l some generalized weakness LOWER EXTREMITY [5]/5 in all major muscle groups of the LE b/l some generalized weakness no focal deficits REFLEXES Upper Extremity: RIGHT [2]/4 LEFT [2]/4 Lower Extremity: RIGHT [2]/4 LEFT [2]/4 Pathological Reflexes White's: RIGHT [Absent] LEFT [Absent] Babinski: RIGHT [Absent] LEFT [Absent] Clonus: RIGHT [None] LEFT [None] SENSORY Pain and LT sense [Intact C5-T1 and L2-S1] Dermatomal deficit [None] Gait and Functional Evaluation: Ambulatory aids: walker Results CT abdomen and pelvis is reviewed and demonstrates widespread lytic blastic type lesions throughout the bony spinal column. There is at T10 A vertebral compression fracture that is likely progressed over time. It is partially 50% compressed and causing a kyphotic deformity of the round 10 at this level. The bladder is very distended and this image. There is no evidence of acute compressive pathologies or tumors pathologies however MRI is a better view of this. Dedicated films of the thoracic and lumbar spine are recommended for further evaluation. - Labs Labs: H & H 01/30/22 Range/Units 05:47 Hgb 10.9 L (11.4-16.0) gm/dL Hct 33.8 L (34.0-46.0) % Result Diagrams: 01/30/22 05:47 02/02/22 05:16 Assessment and Plan Assessment: 81-year-old female with unknown metastatic disease potentially multiple myeloma T10 compression fracture with 10 of kyphotic alignment 50% compressed Plan: -CT scans of the thoracic and lumbar spine for dedicated view - pain control if needed - PT OT - recommend Vigil placement due to distended bladder - once dedicated films are completed could consider a kyphoplasty biopsy of T10 if a potential diagnosis is desired
[2022-02-05] MEDS: PANTOPRAZOLE 40 MG/10 ML VIAL IVP SCH ×2 (09:17→20:05)
[2022-02-05] MEDS: SENNOSIDES-DOCUSATE SODIUM 1 EACH TAB PO SCH ×3 (09:17→20:11)
[2022-02-05] MEDS: HEPARIN SODIUM,PORCINE/PF 5,000 UNIT/0.5 ML SYRINGE SQ SCH ×2 (09:17→20:05)
[2022-02-05] MEDS: MEGESTROL 400 MG/10 ML CUP PO SCH (09:17)
--- NOTE | 2022-02-05 15:32 | CT ---
EXAMINATION TYPE: CT thor lumbar spine wo con DATE OF EXAM: 02/05/2022 COMPARISON: None HISTORY: mets fx CT DLP: 1117 mGycm Automated exposure control for dose reduction was used. Unenhanced CT of the thoracolumbar spine was performed in the axial, coronal and sagittal planes. FINDINGS: All visualized vertebral segments throughout T1 extending into the sacrum at its midportion demonstra te mixed lytic and sclerotic lesions compatible with diffuse metastatic disease. Lesions are noted to involve the pedicles as well as the transverse and spinous processes at various levels. Scattered ri b lesions are also noted. Greatest loss of height is noted at T10 with loss of height of approximatel y 40%. There is some bony retropulsion noted to measure 3.6 mm. Constriction of the thecal sac withou t definite cord compression at this time. Mild loss of height involving vertebral segments T2-T8. No evidence for bony retropulsion. Bilateral pleural effusions. IMPRESSION: 1. Extensive mixed Lytic and blastic lesions throughout the visualized thoracic, lumbar and sacral po rtions of the spine. 2. Greatest compression fractures at T10 with loss of vertebral body height estimated at 40% with mil d retropulsion as noted above.
[2022-02-05] MEDS: SODIUM CHLORIDE 0.9% 1,000 ML IV SCH (16:59)
--- NOTE | 2022-02-06 00:12 | P.PN ---
Subjective Progress Note Date: 02/05/22 Principal diagnosis: Intractable pain, failure to thrive When seen today pt u in chair, she has been cleaned up, she is ambulating in the hallway with walker. She was seen by Ortho Spine Surgeon Objective - Vital Signs Vital signs: Vital Signs Temp 98.1 F 02/05/22 11:17 Pulse 88 02/05/22 11:17 Resp 18 02/05/22 11:17 BP 137/68 02/05/22 11:17 Pulse Ox 98 02/05/22 11:17 FiO2 Intake & Output 02/04/22 02/05/22 02/05/22 18:59 06:59 18:59 Intake Total 350 Balance 350 Weight 51.71 kg Intake: Oral 350 Other: Voiding Method Toilet Toilet Toilet # Voids 1 3 2 # Bowel Movements 1 1 - Constitutional General appearance: Present: average body habitus, cooperative, no acute distress - EENT Eyes: Present: anicteric sclerae, EOMI ENT: Present: hearing grossly normal - Respiratory Details: resp even and unlabored, visualized ambulating and no resp distress noted - Peripheral edema leg Peripheral Edema: bilateral: Trace - Neurologic Neurologic: Present: CNII-XII intact - Musculoskeletal Musculoskeletal: Present: strength equal bilaterally - Psychiatric Psychiatric: Present: A&O x's 3, appropriate affect, intact judgment & insight - Labs CBC & Chem 7: 01/30/22 05:47 02/02/22 05:16 Assessment and Plan (1) Failure to thrive Current Visit: Yes Status: Acute Priority: High Code(s): OVM0782 - SNOMED Code(s): 42200779 (2) Metastatic cancer Current Visit: Yes Status: Acute Priority: High Code(s): C79.9 - SECONDARY MALIGNANT NEOPLASM OF UNSPECIFIED SITE SNOMED Code(s): 586750749 Plan: Small monoclonal protein on labs, nothing that would account for pt symptoms. Her labs are otherwise normal, mild anemia. 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 CT AP no suspicious masses. Reported osteolytic and osteoblastic changes the L spine and pelvis are reports suggestive of metastatic disease, possible compression fracture. Orthopedic Spine Surgical consulted, have recommended manish ging, may consider doing kyphoplasty for pt comfort and obtain biopsy at that time. Pending imaging and Surgeons opinion. Did obtain records. Pt has had bone marrow biopsy. This was positive for carcinoma, no primary able to be identified. CT scans did not reveal any mass or lesion to biopsy. PET was going to be done to see if any suspicious lesions could be identified but, as previously noted, it was canceled by family. May have to reschedule. Spent >45 min reviewing case with Tap And Die Maker Technician and son on the phone. He does not feel his mother is going to be able to return home as she was not doing well prior to hospitalization. Because of wanting to have Doctor follow up appts and wanting to have a diagnosis there is some controversy as to what is the best placement for pt-rehab, ECF residency or assisted living. He also is not understanding the financial process. I spoke to him once already today. I have more info for him about how to get his mother into a facility. I will speak to him again tomorrow, we should have Surgeon recommendation and plan by then as well. Hopefully, pt can be ready for discharge early next week. Time with Patient: Greater than 30 (>45 min counseling and coordinating care)
--- NOTE | 2022-02-06 04:54 | P.PN ---
Subjective Progress Note Date: 02/05/22 02/01/2022 This is a 81 year old female who was admitted with uncontrolled pain and undergoing testing with recent diagnosis of metastatic malignancy versus multiple myeloma. Patient has had testing done at other facilities outpatient and awaiting results. Patient with uncontrolled pain and overall weakness with decreased appetite. Patient was started on Marinol and have also made adjustments to pain medications. Encouraged increased activity as tolerated and awaiting PT/OT evaluation. ONcology following and awaiting medical records. Afebrile and denies chest pain or shortness of breath. Continue gentle hydration and encouraged oral intake. Will order repeat am labs. 02/02/2022 She is seen in follow-up today with reports of continued pain. Patient also reports that she has not had a bowel movement in 5 days and will add laxatives including suppository. Encouraged oral intake and increased activity as tolerated. Patient to be seen by PT/OT. Possible ECF being planned. Son requesting hospice informational. Reports of being unable to care for her in the home as he is leaving out of the country for a few months. Patient is demanding a diagnosis and better pain control while here inpatient. Reports from [facility] continue to be pending. Oncology following and awaiting reports as well as she was following outside of the system for testing. Patient is afebrile and denies chest pain or shortness of breath. No reports of nausea or vomiting just not much of an appetite. Started on Marinol. Case management following. 02/03/2022 Patient is seen and evaluated in follow-up today and was given a suppository and reports to having a bowel movement. Patient continues to report pain that is not being controlled. Skytop being increased. Encouraged limiting use of IV pain medications. Encouraged oral intake and increased activity as tolerated. Patient with significant weakness and muscle wasting and not eating very well with concerns of possible metastatic disease. Son Saul here today and with concerns of pain not being managed and options for treatment plan and possible ECF vs hospice being considered. Lengthy discussion was had with son, patient, and pillowcase cleaner at bedside. Patient has been recently going to multiple hospitals and not satisfied with the care receiving so came here to [facility] for evaluation. ONcology is following. Will consult ortho and appreciate input and r ecommendations. PT/OT to evaluate and possible ecf being planned. 02/04/2022 Patient is seen and evaluated today reporting that her pain is somewhat better controlled on the larger dose of Skytop. Patient continues to use IV pain medications as needed. Patient is reporting that her pain is waxing and waining but mostly getting more severe once the medication wears off. Patient reports of feeling tired. Encouraged the patient to get up out of bed and continue PT/OT therapy. Encouraged oral intake. Awaiting ortho consult. Afebrile and denies chest pain or shortness of breath. Case management following and discussing options of discharge with patient and son Saul. 02/05/2022 Patient is seen and evaluated this morning when no significant changes. Patient continues to report her pain and continued on Skytop along with IV pain medications. Patient needs encouragement on getting up and increasing activity as tolerated. Recommend PT/OT therapy daily. Orthopedics Dr. Leyva consul yasir and evaluated the patient today recommending CT of the spine which is currently pending and discussion of possible kyphoplasty with biopsy although awaiting images. Case management is following and working on possible rehab as well. Oncology following and to discuss further with son about overall treatment plan. Patient is somewhat of a poor historian and changes her stories often and does not recall a lot of what the doctors are telling her. Patient is known to fail for outpatient follow-up. Poor social support and son refusing to have her come back home. Patient was agreeable to rehab although this changes daily. Patient is not agreeable to hospice but would like to obtain some form of diagnosis her overall prognosis. Will await orthopedic recommendations. Patient is afebrile denies chest pain or shortness of breath. Patient is eating and will continue to encourage oral intake. Patient denies any nausea or vomiting at this time. Review of systems: Constitutional: reports of fatigue, no fever, or chills Cardiovascular: No reports of chest pain or palpitations Respiratory: no reports of shortness of breath and cough GI: no reports of nausea, no vomiting, reports having bowel movements, reports no appetite : No reports of dysuria or retention, patient is retaining Neurovascular: reports of generalized weakness and overall body aches and pain in the back and pelvis All medications have been reviewed PHYSICAL EXAMINATION: GENERAL: The patient is alert and oriented x3, a poor historian, Well developed, well nourished. HEENT: Pupils are round and equally reacting to light. EOMI. no scleral icterus. No conjunctival pallor. Normocephalic, atraumatic. No pharyngeal erythema. No thyromegaly. CARDIOVASCULAR: S1 and S2 muffled PULMONARY: diminished breath sounds bilaterally with some scattered rhonchi noted. ABDOMEN: soft. mildly tender. distended, normoactive bowel sounds. No palpable organomegaly. MUSCULOSKELETAL: No joint swelling or deformity. EXTREMITIES: No cyanosis, clubbing, or pedal edema. muscle wasting noted NEUROLOGICAL: Gross neurological examination did not reveal any focal deficits. diffuse weakness SKIN: No rashes. Assessment: Possible metastatic bone malignancy versus multiple myeloma, multiple myeloma suspicion is low with failure to outpatient follow up Adenocarcinoma noted on bone marrow biopsy at [place] with no known origination Severe weakness urinary retention possibly secondary to medication effect Severe bone pain with failure of outpatient treatment Gait dysfunction Severe protein calorie malnutrition with a bmi of 20.2 GI prophylaxis DVT prophylaxis Full code Plan: Recommend to continue with current medications and management with oncology following. Pain is better controlled on higher dose norco. Recommend limiting IV dilaudid. . Patient reports to eating a little better and will continue marinol. Encouraged oral intake. Patient reports having bowel movements. Patient not reporting feeling of incomplete bladder emptying, retention or pain, but abdomen is distended and post void residual was noted to have over 900 retention. Will order indwelling chisholm. Patient encouraged to increase activity as tolerated. Patient with weakness and recommend PT/OT daily. Discussed with patient, son, and case management in detail about discharge planning once cleared and is being worked on with case management. Difficulty with social issues as family (son) is refusing patient to discharge to his home. Ortho now following and has ordered some CT images and discussing possible kyphoplasty wi th biopsy. Awaiting CT. Will need follow up outpatient with Dr. [facility] oncology once discharged from [facility]. Patient needs outpatient PET scan. Due to multiple complex medical issues, prognosis is guarded. The impression and plan of care has been dictated by Deepa Hill, Nurse Practitioner as directed. Dr. Aden MD I have performed a history and examination and MDM of this patient, discussed the same with the dictator, and agree with the dictator's assessment and plan as written ,documented as a scribe. Based on total visit time, I have performed more than 50% of the visit. Objective - Vital Signs Vital signs: Vital Signs Temp 98.2 F 02/05/22 05:00 Pulse 86 02/05/22 05:00 Resp 18 02/05/22 05:00 BP 112/74 02/05/22 05:00 Pulse Ox 96 02/05/22 05:00 FiO2 Intake & Output 02/04/22 02/05/22 02/05/22 18:59 06:59 18:59 Intake Total 350 Balance 350 Weight 51.71 kg Intake: Oral 350 Other: Voiding Method Toilet Toilet # Voids 1 3 # Bowel Movements 1 - Labs CBC & Chem 7: 01/30/22 05:47 02/02/22 05:16
[2022-02-06] MEDS: HYDROcodone/APAP 10-325MG 1 EACH TAB PO PRN ×3 (05:26→20:04)
[2022-02-06] MEDS: SODIUM CHLORIDE 0.9% 1,000 ML IV SCH ×2 (05:26→17:05)
--- NOTE | 2022-02-06 08:07 | P.PN ---
Subjective Progress Note Date: 02/06/22 Pt s/e. She is doing fairly well today denies any pain. denies any bowel or bladder issues she had a chisholm placed. She states no f/c/sob/cp. States no numbness/tingling, weakness or other neurological sx. Does c/o of some "pelvis pain" but when prompted could not localize well or describe. Suspect it could be just from overall disease. No other issues. Objective - Vital Signs Vital signs: Vital Signs Temp 98.4 F 02/06/22 05:06 Pulse 82 02/06/22 05:06 Resp 16 02/06/22 05:06 BP 123/68 02/06/22 05:06 Pulse Ox 97 02/06/22 05:06 FiO2 Intake & Output 02/05/22 02/06/22 02/06/22 18:59 06:59 18:59 Intake Total 900 Output Total 2399 Balance -2399 900 Weight 51.71 kg Intake: Intake, IV Titration 900 Amount Sodium Chloride 0.9% 1, 900 000 ml @ 75 mls/hr IV . [id number] [facility] Rx#:[id number] Output: Urine 1400 Post Void Residual 999 Other: Voiding Method Toilet Indwelling Catheter # Voids 3 # Bowel Movements 1 - Exam Physical Exam: -Patient is alert and oriented 3 appears well-nourished well-hydrated is in no acute distress. They do not appear septic. -There is no TTP of the cervical thoracic or lumbar region -Upper extremities show [5] out of 5 strength in all major muscle groups. generalized weakness -Lower extremities with [5] out of 5 strength in all major muscle groups generalized weakness -There is [FROM] that is [painless] of the b/l UE and LE in all major joints. negative tensioning size straight leg raise or log roll -They are intact to light touch sensation in C5 to T1 and L2 to S1 nerve distribution. -DTR [2]/4 all upper and lower extremities -Patient has palpable distal pulses all 4 ext -Compartments are soft and compressible. -Patient shows a negative Araceli's [-Neg Hoffmans b/l] [-Neg Clonus b/l] [-Neg babinski b/l] Cranial nerves II through XII are grossly intact. - Labs CBC & Chem 7: 01/30/22 05:47 02/02/22 05:16 Assessment and Plan Assessment: 81-year-old female with unknown metastatic disease potentially multiple myeloma T10 compression fracture with 10 of kyphotic alignment 50% compressed Plan: -CT scans reviewed agree with Radiology IMPRESSION: 1. Extensive mixed Lytic and blastic lesions throughout the visualized thoracic, lumbar and sacral portions of the spine. 2. Greatest compression fractures at T10 with loss of vertebral body height estimated at 40% with mild retropulsion as noted above. -Pt having no pain currently. Would not recommend Kyphoplasty at this time. If she becomes more painful in her back could consider. -May follow up in office -Management per Primary team
[2022-02-06 08:55] LABS: Basophils # (A) 0.01 X 10*3/uL (0.00-0.10); Basophils % (A) 0.2 %; Eosinophils # (A) 0.17 X 10*3/uL (0.04-0.35); Eosinophils % (A) 2.7 %; HCT 26.3 % (37.2-46.3); HGB 8.3 g/dL (12.0-15.0); Immature Grans, Automated 0.5 %; Lymphocytes # (A) 1.64 X 10*3/uL (0.90-5.00); Lymphocytes % (A) 25.9 %; MCH 32.8 pg (27.0-32.0); MCHC 31.6 g/dL (32.0-37.0); Mean Platelet Volume 11.7 fL (9.5-12.2); Monocytes # (A) 0.78 X 10*3/uL (0.20-1.00); Monocytes % (A) 12.3 %; NRBC Per 100 WBC 0 /100 WBCS (0.0-0.0); Neutrophils # (A) 3.71 X 10*3/uL (1.80-7.70); Neutrophils % (A) 58.4 %; Platelet Count 241 X 10*3/uL (140-440); RBC 2.53 X 10*6/uL (4.10-5.20); RDW 18.8 % (11.5-14.5); WBC 6.34 X 10*3/uL (4.50-10.00)
[2022-02-06] MEDS: PANTOPRAZOLE 40 MG/10 ML VIAL IVP SCH ×2 (08:58→20:05)
[2022-02-06] MEDS: SENNOSIDES-DOCUSATE SODIUM 1 EACH TAB PO SCH ×2 (08:58→20:06)
[2022-02-06] MEDS: HEPARIN SODIUM,PORCINE/PF 5,000 UNIT/0.5 ML SYRINGE SQ SCH ×2 (08:59→20:05)
[2022-02-06] MEDS: MEGESTROL 400 MG/10 ML CUP PO SCH (08:59)
[2022-02-06] MEDS: HYDROmorphone 0.5 MG/0.5 ML SYRINGE IVP PRN ×3 (09:05→22:46)
[2022-02-06 09:26] LABS: African American GFR (CKD) 92.9 (60.0-200.0); Anion Gap 12.2 mmol/L (10.00-18.00); BUN/Creat Ratio 13.43 Ratio (12.00-20.00); Blood Urea Nitrogen 9.4 mg/dL (9.0-27.0); Calcium 8.2 mg/dL (8.7-10.3); Carbon Dioxide 17.8 mmol/L (20.0-27.5); Non-African American GFR(CKD) 80.1 (60.0-200.0); Potassium 3.8 mmol/L (3.5-5.5)
[2022-02-06 09:27] LABS: Magnesium 1.7 mg/dL (1.5-2.4)
--- NOTE | 2022-02-06 14:04 | P.PN ---
Subjective Progress Note Date: 02/06/22 Principal diagnosis: Intractable pain, failure to thrive When seen today pt in chair again, she was up for 3 hours yesterday, she is Ambulating with an assistive device as well as standby assist. She is still complaining of intractable pain, She admits to some relief after medications. No nausea, vomiting, chest pain or shortness of breath. She has had BM. Objective - Vital Signs Vital signs: Vital Signs Temp 98.7 F 02/06/22 11:18 Pulse 86 02/06/22 11:18 Resp 16 02/06/22 11:18 BP 120/67 02/06/22 11:18 Pulse Ox 95 02/06/22 11:18 FiO2 Intake & Output 02/05/22 02/06/22 02/06/22 18:59 06:59 18:59 Intake Total 900 Output Total 2399 Balance -2399 900 Weight 51.71 kg Intake: Intake, IV Titration 900 Amount Sodium Chloride 0.9% 1, 900 000 ml @ 75 mls/hr IV . [id number] [facility] Rx#:[id number] Output: Urine 1400 Post Void Residual 999 Other: Voiding Method Toilet Indwelling Catheter Indwelling Catheter # Voids 3 # Bowel Movements 1 - Constitutional General appearance: Present: average body habitus, cooperative, no acute distress - EENT Eyes: Present: anicteric sclerae, EOMI ENT: Present: hearing grossly normal - Cardiovascular Details: Respirations even and unlabored at rest - Peripheral edema leg Peripheral Edema: right: Other (Right upper extremity swelling, 2+, Painful to touch), bilateral: 1+ - Neurologic Neurologic: Present: CNII-XII intact - Musculoskeletal Musculoskeletal: Present: generalized weakness - Psychiatric Psychiatric: Present: A&O x's 3, appropriate affect, intact judgment & insight - Labs CBC & Chem 7: 02/06/22 05:27 02/06/22 05:33 Labs: Abnormal Lab Results - Last 24 Hours (Table) 02/06/22 02/06/22 Range/Units 05:27 05:33 RBC 2.53 L (4.10-5.20) X 10*6/uL Hgb 8.3 L (12.0-15.0) g/dL Hct 26.3 L (37.2-46.3) % MCV 104.0 H (80.0-97.0) fL MCH 32.8 H (27.0-32.0) pg MCHC 31.6 L (32.0-37.0) g/dL RDW 18.8 H (11.5-14.5) % Chloride 110 H (96-109) mmol/L Carbon Dioxide 17.8 L (20.0-27.5) mmol/L Calcium 8.2 L (8.7-10.3) mg/dL - Imaging and Cardiology T/L-spine CT report reviewed Assessment and Plan (1) Failure to thrive Current Visit: Yes Status: Acute Priority: High Code(s): ECE7291 - SNOMED Code(s): 22128964 (2) Metastatic cancer Current Visit: Yes Status: Acute Priority: High Code(s): C79.9 - SECONDARY MALIGNANT NEOPLASM OF UNSPECIFIED SITE SNOMED Code(s): 355416913 Plan: Small monoclonal protein on labs, nothing that would account for pt symptoms. Her labs are otherwise normal, mild anemia. 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 CT AP no suspicious masses. Reported osteolytic and osteoblastic changes the L spine and pelvis are reports suggestive of metastatic disease, possible compression fracture. Orthopedic Spine Surgical consulted, No acute intervent ion. Have sent a message requesting Spine Surgeon to review if there is a suspicious area that would be amenable for biopsy. Bone marrow biopsy at outside facility was positive for carcinoma, no primary identified. Plan is to get pain controlled as best as possible. Medications have been adjusted. Medications to prevent narcotic-induced constipation ordered. Doppler ordered of the right upper extremity for swelling and pain Discussed case with Internal Medicine andCcase Management as well as patient's son. Plan is for discharge on Wednesday to [facility]. Patient is going to be going as a rehabilitation patient. Son was given name and number of a automotive parts salesperson at [facility] to discuss the financial planning that will need to be in place for patient to transition from rehabilitation to resident. It is clear that no imaging or treatment can be done while patient is in rehabilitation. Once patient transitions to a resident then PET scan, biopsy, Dr. follow-ups etc. can be planned. Patient's son verbalized understanding the plan. Spent >45 min attests: I have seen and examined patient, performed H&P, developed impression and plan of care. Discussed with dictator. Agree with documentation, dictated as a scribe
--- NOTE | 2022-02-06 16:34 | US ---
EXAMINATION TYPE: US venous doppler duplex UE RT DATE OF EXAM: 02/06/2022 COMPARISON: NONE CLINICAL HISTORY: swelling, pain. Swelling. No redness. SIDE PERFORMED: Right Right Arm: Negative for DVT Grayscale, color doppler, spectral doppler imaging performed of the deep veins of the upper extremiti es. There is normal flow, compressibility and vascular waveforms. IMPRESSION: No evidence of deep thrombosis of the right upper extremity.
--- NOTE | 2022-02-07 05:45 | P.PN ---
Subjective Progress Note Date: 02/06/22 02/01/2022 This is a 81 year old female who was admitted with uncontrolled pain and undergoing testing with recent diagnosis of metastatic malignancy versus multiple myeloma. Patient has had testing done at other facilities outpatient and awaiting results. Patient with uncontrolled pain and overall weakness with decreased appetite. Patient was started on Marinol and have also made adjustments to pain medications. Encouraged increased activity as tolerated and awaiting PT/OT evaluation. ONcology following and awaiting medical records. Afebrile and denies chest pain or shortness of breath. Continue gentle hydration and encouraged oral intake. Will order repeat am labs. 02/02/2022 She is seen in follow-up today with reports of continued pain. Patient also reports that she has not had a bowel movement in 5 days and will add laxatives including suppository. Encouraged oral intake and increased activity as tolerated. Patient to be seen by PT/OT. Possible ECF being planned. Son requesting hospice informational. Reports of being unable to care for her in the home as he is leaving out of the country for a few months. Patient is demanding a diagnosis and better pain control while here inpatient. Reports from [place] continue to be pending. Oncology following and awaiting reports as well as she was following outside of the system for testing. Patient is afebrile and denies chest pain or shortness of breath. No reports of nausea or vomiting just not much of an appetite. Started on Marinol. Case management following. 02/03/2022 Patient is seen and evaluated in follow-up today and was given a suppository and reports to having a bowel movement. Patient continues to report pain that is not being controlled. [place] being increased. Encouraged limiting use of IV pain medications. Encouraged oral intake and increased activity as tolerated. Patient with significant weakness and muscle wasting and not eating very well with concerns of possible metastatic disease. Son Saul here today and with concerns of pain not being managed and options for treatment plan and possible ECF vs hospice being considered. Lengthy discussion was had with son, patient, and case packer at bedside. Patient has been recently going to multiple hospitals and not satisfied with the care receiving so came here to [facility] for evaluation. ONcology is following. Will consult ortho and appreciate input and r ecommendations. PT/OT to evaluate and possible ecf being planned. 02/04/2022 Patient is seen and evaluated today reporting that her pain is somewhat better controlled on the larger dose of [place]. Patient continues to use IV pain medications as needed. Patient is reporting that her pain is waxing and waining but mostly getting more severe once the medication wears off. Patient reports of feeling tired. Encouraged the patient to get up out of bed and continue PT/OT therapy. Encouraged oral intake. Awaiting ortho consult. Afebrile and denies chest pain or shortness of breath. Case management following and discussing options of discharge with patient and son Saul. 02/05/2022 Patient is seen and evaluated this morning when no significant changes. Patient continues to report her pain and continued on [place] along with IV pain medications. Patient needs encouragement on getting up and increasing activity as tolerated. Recommend PT/OT therapy daily. Orthopedics Dr. Leyva consul yasir and evaluated the patient today recommending CT of the spine which is currently pending and discussion of possible kyphoplasty with biopsy although awaiting images. Case management is following and working on possible rehab as well. Oncology following and to discuss further with son about overall treatment plan. Patient is somewhat of a poor historian and changes her stories often and does not recall a lot of what the doctors are telling her. Patient is known to fail for outpatient follow-up. Poor social support and son refusing to have her come back home. Patient was agreeable to rehab although this changes daily. Patient is not agreeable to hospice but would like to obtain some form of diagnosis her overall prognosis. Will await orthopedic recommendations. Patient is afebrile denies chest pain or shortness of breath. Patient is eating and will continue to encourage oral intake. Patient denies any nausea or vomiting at this time. 02/06/2022 Patient is seen today and sitting up in the chair this morning. Patient being followed by oncology along with orthopedics. After review of the CT images, ortho not planning for kyphoplasty or biopsy at this time. Oncology discussing further about getting a biopsy with ortho for possible confirmed diagnosis. Patient is agreeable with this. Patient continues to report uncontrolled pain and medications being adjusted. Patient had chisholm catheter placed for retention and will continue for now. Encouraged oral intake and increased activity as tolerated. Patient is afebrile and denies chest pain or shortness of breath. Patient is reporting some swelling of the right upper extremity and doppler is ordered and pending. Review of systems: Constitutional: reports of fatigue, no fever, or chills Cardiovascular: No reports of chest pain or palpitations Respiratory: no reports of shortness of breath and cough GI: no reports of nausea, no vomiting, reports having bowel movements, reports no appetite : No reports of dysuria or retention, patient is retaining Neurovascular: reports of generalized weakness and overall body aches and pain , reports right arm pain and swelling. All medications have been reviewed PHYSICAL EXAMINATION: GENERAL: The patient is alert and oriented x3, a poor historian, Well devel oped, well nourished. HEENT: Pupils are round and equally reacting to light. EOMI. no scleral icterus. No conjunctival pallor. Normocephalic, atraumatic. No pharyngeal erythema. No thyromegaly. CARDIOVASCULAR: S1 and S2 muffled PULMONARY: diminished breath sounds bilaterally with some scattered rhonchi noted. ABDOMEN: soft. mildly tender. distended, normoactive bowel sounds. No palpable organomegaly. MUSCULOSKELETAL: No joint swelling or deformity. EXTREMITIES: No cyanosis, clubbing, or pedal edema. muscle wasting noted NEUROLOGICAL: Gross neurological examination did not reveal any focal deficits. diffuse weakness SKIN: No rashes. Assessment: Possible metastatic bone malignancy versus multiple myeloma, multiple myeloma suspicion is low with failure to outpatient follow up Adenocarcinoma noted on bone marrow biopsy at [place] with no known origination Severe weakness urinary retention possibly secondary to medication effect requiring chisholm catheter Severe bone pain with failure of outpatient treatment Gait dysfunction Severe protein calorie malnutrition with a bmi of 20.2 GI prophylaxis DVT prophylaxis Full code Plan: Recommend to continue with current medications and management with oncology following. Pain is patients number one priority and reports severe pain that is currently uncontrolled. Medications being adjusted again. Recommend limiting IV dilaudid. Encouraged oral intake. Patient reports having bowel movements. Patient requiring indwelling chisholm for retention. Patient encouraged to increase activity as tolerated. Patient with weakness and recommend PT/OT daily. Discussed with patient, son, and case management in detail about discharge planning once cleared and is being worked on with case management. Difficulty with social issues as family (son) is refusing patient to discharge to his home. Ortho now following and recommend no intervention at this time. ONcology to discuss further with orthoabout a biopsy. Will need follow up outpatient with Dr. Hi oncology once discharged from [facility]. Patient needs outpatient PET scan. Due to multiple complex medical issues, prognosis is guarded. The impression and plan of care has been dictated by Deepa Hill, Nurse Practitioner as directed. Dr. Aden MD I have performed a history and examination and MDM of this patient, discussed the same with the dictator, and agree with the dictator's assessment and plan as written ,documented as a scribe. Based on total visit time, I have performed more than 50% of the visit. Objective - Vital Signs Vital signs: Vital Signs Temp 98.7 F 02/07/22 05:00 Pulse 92 02/07/22 05:00 Resp 16 02/07/22 05:00 BP 147/77 02/07/22 05:00 Pulse Ox 96 02/07/22 05:00 FiO2 Intake & Output 02/06/22 02/06/22 02/07/22 06:59 18:59 06:59 Intake Total 900 Output Total 200 Balance 900 -200 Intake: Intake, IV Titration 900 Amount Sodium Chloride 0.9% 1, 900 000 ml @ 75 mls/hr IV . [id number] [facility] Rx#:[id number] Output: Urine 200 Other: Voiding Method Indwelling Catheter Indwelling Catheter Indwelling Catheter - Labs CBC & Chem 7: 02/06/22 05:27 02/06/22 05:33 Labs: Abnormal Lab Results - Last 24 Hours (Table) 02/06/22 02/06/22 Range/Units 05:27 05:33 RBC 2.53 L (4.10-5.20) X 10*6/uL Hgb 8.3 L (12.0-15.0) g/dL Hct 26.3 L (37.2-46.3) % MCV 104.0 H (80.0-97.0) fL MCH 32.8 H (27.0-32.0) pg MCHC 31.6 L (32.0-37.0) g/dL RDW 18.8 H (11.5-14.5) % Chloride 110 H (96-109) mmol/L Carbon Dioxide 17.8 L (20.0-27.5) mmol/L Calcium 8.2 L (8.7-10.3) mg/dL
[2022-02-07] MEDS: SODIUM CHLORIDE 0.9% 1,000 ML IV SCH (06:23)
[2022-02-07] MEDS ORDERED: IOPAMIDOL M200 10 ML VIAL MISCELLANE ONE (10:03)
[2022-02-07] MEDS ORDERED: BUPIVACAIN-EPI 0.5%-1:200,000 30 ML VIAL SQ ONE (10:04)
[2022-02-07] MEDS ORDERED: LACTATED RINGERS 1,000 ML IV ONE (10:19)
--- NOTE | 2022-02-07 12:01 | P.OP ---
Date of Procedure: 02/07/22 Preoperative Diagnosis: 1. T10 pathological compression fracture 2. Back pain 3. Mets vs myeloma vs lymphoma Postoperative Diagnosis: 1. T10 pathological compression fracture 2. Back pain 3. Mets vs myeloma vs lymphoma Procedure(s) Performed: 1. T10 biopsy with kyphoplasty (62362) 2. Needle localization under flouroscopic guidance of T10 vertebrae ([id number]) Implants: Lucy cement Anesthesia: GETA Surgeon: Don Leyva Ice Seller #1: Goldy Campbell (Was present and assisted in the entire case from positioning to dressing placement) Estimated Blood Loss (ml): 2 IV fluids (ml): 100 Urine output (ml): 20 Pathology: other (t10 vertebral body specimine. White fibrous tissue samples, non bloody, soft with some bone fragments) Condition: stable Disposition: PACU Indications for Procedure: Spine Surgery Clinical and Risk Review Jeanna is a 81-year-old female presenting for evaluation of back pain and pelvic pain and unknown primary disease. It was my pleasure to have seen and examined Jeanna. In our visit today we have had a chance to go over subjective complaints, physical examination findings and treatments including the natural course history without intervention and various interventional options. The patients imaging demonstrates metastatic versus myelomatous type disease with lytic blastic lesions throughout the spinal column. T10 as a vertebral compression type pathologic fracture with 40% compression and anterior wedging.. On physical exam, Jeanna demonstrates moderate pain with motion some tenderness to palpation around the T10 level paraspinal and centrally with kyphotic deformity. I have explained to the patient that as their condition progresses it will cause further neurological deficits and eventual paralysis. Based on the patients imaging, physical exam, and the rapid progression and disabling nature of their symptoms, at this time I recommend surgery in the form or a: T10 biopsy with kyphoplasty. I discussed the risk and benefits of this procedure at length with Jeanna. The patient her son agreed to considered pursuing the procedure abovementioned. Prior to surgery, she should follow up with her PCP (Cardio, ID, IM etc) for clearance. Questions were invited and answered, and the patient wishes to proceed as outlined below. Currently, I am recommendin. T10 biopsy with kyphoplasty 2. Follow up with PCP for surgical clearance 3. Review of surgical risks and benefits as well as an educational packet on the proposed surgical procedure. Risks: All surgical procedures come with inherent risks, including those related to positioning, anesthesia, intraoperative findings, and postoperative complicati ons. It is important to understand that surgery does not come with any guarantee of a successful outcome as complications and adverse events are always possible. The patient was given a handout in office today discussing the surgical procedure and risks associated with the intervention, both of which were discussed with the patient. These risks include but are not limited to the following: * Experiencing same, different or even worse symptoms in back, neck, arms, or legs compared to before surgery. * Requiring further surgery or other forms of treatment presently or at some time in the future at same or other levels of the intended spine surgery. * On an extreme but fortunately relatively rare basis severe complication such as blindness, stroke, heart attack, temporary and/or permanent nerve injury, paralysis, coma, or may occur, sometimes without known explanation. * Surgical complications may include but are not limited to risk of infection, fluid accumulation in the surgical dissection site, including a seroma or hematoma, that requires additional surgery, wound drainage, bleeding, new numbness or weakness, vision changes/loss, spinal fluid leakage, non-healing and/or infected incision, headaches, difficulty or inability to swallow, hoarseness, hemopneumothorax, pneumothorax, impotence, retrograde ejaculation, vaginal dryness; injury to nerves, spinal cord, blood vessels, lymphatics or other vital organs (i.e., bowel injury, injury to the great vessels); heterotopic bone formation; complications related to the hardware such as screws, rods, cages including misplaced hardware, device failure, instrumentation at the wrong spine level, hardware fracture/breakage, or hardware loosening; vertebral failure of the spinal column above or below the newly placed hardware; retained surgical instrumentations or devices and the need for further surgery. * Medical risks of the planned spine surgery include but are not limited to generalized Infections to the whole body or local areas outside of the surgical site (sepsis), heart attack, bleeding, anaphylaxis, meningitis, seizure, epilepsy, hearing loss, burn roblero, laceration of the head or other areas of the body, bruising, hypersensitivity of the skin, bladder over distension; allergic reaction; shoulder injury related to positioning; fat, blood and air clots to other areas of the body like heart, lungs, brain; failure of internal organs such as lungs, kidneys, liver and excessive bleeding. If blood transfusions are necessary, note that transfusions may cause intolerance reactions such as anaphylaxis or other complex reactions. * Despite best efforts, the results of spine surgery might not heal in terms of bone, soft tissues such as skin, fascia, ligaments, and joints. Additionally, in order to achieve best possible results, spine surgery may be carried out beyond the initially planned levels and involve decompression, fusion including insertion of hardware at levels other than the original intended area of surgical interest change some portions of the procedure in order to ensure the best possible outcomes. * With spine surgery and spinal fusion, there are different off label uses of instrumentation (devices, implants and hardware) as well as biological substances (bone morphogenic proteins, demineralized bone matrix) as well as using extra bone from allograft sources (i.e. cadaver bone) or autograft (iliac crest bone, ribs, or the spine itself). The patient has been given information about these practices and their inherent risks and benefits. The patient has had a chance to review all the listed information, has been given print outs detailing this information, and has had all his/her questions answered to their satisfaction. It was my pleasure to have seen and examined Jeanna. In our visit today we have had a chance to go over my understanding of our patient's current condition, the natural course history without intervention and various interventional options. Questions were invited and answered, and the patient wishes to proceed as outlined above. I have seen and examined the patient for 25 minutes and we have spent more than 50% of the time in repeat and detailed counseling about the patient's condition, its natural course history with out and as much as can be predicted with surgery and re-review of various surgical treatment options. In conclusion, [Jeanna and her son requested we proceed with the above suggested surgery and are willing to accept risks and limitations of the suggested surgery as nature of the disease process and our best attempts at treatment for the condition. Thank you again for allowing us to be part of your patient's care. Please don't hesitate to contact me if you have any further questions. Signed and authenticated by: [facility] [address] [facility], [address] [address] Description of Procedure: The patient was seen and examined in the preoperative area. All preoperative protocols were followed. Informed consent was obtained risks and benefits of the procedure were discussed at length. Risks including bleeding infection damage to the surrounding tissue and risk of reoperation were discussed with the patient. Risk of anesthesia up to and including was a discussed with the patient. These are outlined in the risk review. They were willing to accept these risks and all of the risks of surgery. The patient was given a weight- based dose of antibiotics in the form of 2 g Ancef. The patient was seen and evaluated by the anesthesia team who deemed them fit for surgery. The site was marked, the patient was willing to proceed with the procedure. The patient was transferred to the operative suite by the Department of anesthesia. They were then drifted off to sleep by the department anesthesia and GETA was performed. The patient tolerated this well. [Vigil catheter was placed by nursing staff, atraumatically]. Once confirmation of lines and ventilation the patient was transferred to a [prone Toribio table very carefully]. All bony prominences including wrists, elbows, axilla, chest, hips, and thighs, and feet were padded very well. Special attention was paid to the genitalia and these were padded accordingly. SCDs were placed on bilateral lower extremities and were connected. Arms were well padded and placed [on arm boards up and out in the 90/90 position]. Once in position, again we confirmed good ventilation capabilities and that lines were running appropriately. The patient'sthoracolumbar spine was then exposed. 1010s were placed outlining the incision site. Standard alcohol was used to clean the incision site and allowed to dry. C-arm was used an AP and lateral to localize with a spinal needle T10 vertebral body and to biomark the patient and confirm level for incision which was marked with a skin marker. Operative briefing was performed with all teams and everyone in agreement to proceed. The patient was then prepped and draped in a normal sterile fashion. Timeout was then performed and all parties were in agreement with the procedure to be performed. skin denia was made over the piercing Biomet area Jamshidi was introduced into the pedicle of T10 and advanced under AP and lateral fluoroscopy into the center of the body. We then passed a biopsy needle and took several different core biopsies of the T10 vertebral body. A drill was then placed and advanced forward under lateral fluoroscopy as this was removed the fragments were removed off of this as well and sent for pathology. We then used a curet to open space across midline. We then use a kyphoplasty balloon inserted and inflated under lateral fluoroscopy we checked AP was across midline and in good position anteriorly. Then removed this then underwent pulse lateral fluoroscopy we injected cement into the T10 vertebral body. Patient remained stable the entire time there is no cement myelography or angiography. We had good fill. Once we had good fill the introducer was removed as well as the Jamshidi there is a small [place] through the pedicle however no other extrusion. We then took final fluoroscopic images showing good reduction of fracture and good fill of cement. The wound was then irrigated and closed with a single stitch cleaned and then glued. A Band-Aid was placed over this once the glue was dry. The patient was transferred back to their hospital bed atraumatically. Patient was then awakened and extubated by the department of anesthesia having tolerated the procedure very well with no complications. They were transferred to the postoperative care unit in stable condition.
[2022-02-07] MEDS: HEPARIN SODIUM,PORCINE/PF 5,000 UNIT/0.5 ML SYRINGE SQ SCH ×2 (12:31→21:57)
[2022-02-07] MEDS: PANTOPRAZOLE 40 MG/10 ML VIAL IVP SCH ×2 (12:34→22:00)
[2022-02-07] MEDS: SENNOSIDES-DOCUSATE SODIUM 1 EACH TAB PO SCH ×3 (12:35→22:09)
[2022-02-07] MEDS: MEGESTROL 400 MG/10 ML CUP PO SCH (12:42)
[2022-02-07] MEDS: HYDROcodone/APAP 10-325MG 1 EACH TAB PO PRN ×3 (12:43→21:58)
--- NOTE | 2022-02-07 12:45 | P.PN ---
Subjective Progress Note Date: 02/07/22 02/01/2022 This is a 81 year old female who was admitted with uncontrolled pain and undergoing testing with recent diagnosis of metastatic malignancy versus multiple myeloma. Patient has had testing done at other facilities outpatient and awaiting results. Patient with uncontrolled pain and overall weakness with decreased appetite. Patient was started on Marinol and have also made adjustments to pain medications. Encouraged increased activity as tolerated and awaiting PT/OT evaluation. ONcology following and awaiting medical records. Afebrile and denies chest pain or shortness of breath. Continue gentle hydration and encouraged oral intake. Will order repeat am labs. 02/02/2022 She is seen in follow-up today with reports of continued pain. Patient also reports that she has not had a bowel movement in 5 days and will add laxatives including suppository. Encouraged oral intake and increased activity as tolerated. Patient to be seen by PT/OT. Possible ECF being planned. Son requesting hospice informational. Reports of being unable to care for her in the home as he is leaving out of the country for a few months. Patient is demanding a diagnosis and better pain control while here inpatient. Reports from [facility] continue to be pending. Oncology following and awaiting reports as well as she was following outside of the system for testing. Patient is afebrile and denies chest pain or shortness of breath. No reports of nausea or vomiting just not much of an appetite. Started on Marinol. Case management following. 02/03/2022 Patient is seen and evaluated in follow-up today and was given a suppository and reports to having a bowel movement. Patient continues to report pain that is not being controlled. Guilderland being increased. Encouraged limiting use of IV pain medications. Encouraged oral intake and increased activity as tolerated. Patient with significant weakness and muscle wasting and not eating very well with concerns of possible metastatic disease. Son Saul here today and with concerns of pain not being managed and options for treatment plan and possible ECF vs hospice being considered. Lengthy discussion was had with son, patient, and gearcase assembler at bedside. Patient has been recently going to multiple hospitals and not satisfied with the care receiving so came here to [facility] for evaluation. ONcology is following. Will consult ortho and appreciate input and r ecommendations. PT/OT to evaluate and possible ecf being planned. 02/04/2022 Patient is seen and evaluated today reporting that her pain is somewhat better controlled on the larger dose of Guilderland. Patient continues to use IV pain medications as needed. Patient is reporting that her pain is waxing and waining but mostly getting more severe once the medication wears off. Patient reports of feeling tired. Encouraged the patient to get up out of bed and continue PT/OT therapy. Encouraged oral intake. Awaiting ortho consult. Afebrile and denies chest pain or shortness of breath. Case management following and discussing options of discharge with patient and son Saul. 02/05/2022 Patient is seen and evaluated this morning when no significant changes. Patient continues to report her pain and continued on Guilderland along with IV pain medications. Patient needs encouragement on getting up and increasing activity as tolerated. Recommend PT/OT therapy daily. Orthopedics Dr. Leyva consul yasir and evaluated the patient today recommending CT of the spine which is currently pending and discussion of possible kyphoplasty with biopsy although awaiting images. Case management is following and working on possible rehab as well. Oncology following and to discuss further with son about overall treatment plan. Patient is somewhat of a poor historian and changes her stories often and does not recall a lot of what the doctors are telling her. Patient is known to fail for outpatient follow-up. Poor social support and son refusing to have her come back home. Patient was agreeable to rehab although this changes daily. Patient is not agreeable to hospice but would like to obtain some form of diagnosis her overall prognosis. Will await orthopedic recommendations. Patient is afebrile denies chest pain or shortness of breath. Patient is eating and will continue to encourage oral intake. Patient denies any nausea or vomiting at this time. 02/06/2022 Patient is seen today and sitting up in the chair this morning. Patient being followed by oncology along with orthopedics. After review of the CT images, ortho not planning for kyphoplasty or biopsy at this time. Oncology discussing further about getting a biopsy with ortho for possible confirmed diagnosis. Patient is agreeable with this. Patient continues to report uncontrolled pain and medications being adjusted. Patient had chisholm catheter placed for retention and will continue for now. Encouraged oral intake and increased activity as tolerated. Patient is afebrile and denies chest pain or shortness of breath. Patient is reporting some swelling of the right upper extremity and doppler is ordered and pending. Review of systems: Constitutional: reports of fatigue, no fever, or chills Cardiovascular: No reports of chest pain or palpitations Respiratory: no reports of shortness of breath and cough GI: no reports of nausea, no vomiting, reports having bowel movements, reports no appetite : No reports of dysuria or retention, patient is retaining Neurovascular: reports of generalized weakness and overall body aches and pain , reports right arm pain and swelling. All medications have been reviewed PHYSICAL EXAMINATION: GENERAL: The patient is alert and oriented x3, a poor historian, Well devel oped, well nourished. HEENT: Pupils are round and equally reacting to light. EOMI. no scleral icterus. No conjunctival pallor. Normocephalic, atraumatic. No pharyngeal erythema. No thyromegaly. CARDIOVASCULAR: S1 and S2 muffled PULMONARY: diminished breath sounds bilaterally with some scattered rhonchi noted. ABDOMEN: soft. mildly tender. distended, normoactive bowel sounds. No palpable organomegaly. MUSCULOSKELETAL: No joint swelling or deformity. EXTREMITIES: No cyanosis, clubbing, or pedal edema. muscle wasting noted NEUROLOGICAL: Gross neurological examination did not reveal any focal deficits. diffuse weakness SKIN: No rashes. 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 Pain is patients number one priority and reports severe pain that is currently uncontrolled. Medications being adjusted again. Recommend limiting IV dilaudid although patient requests. Encouraged oral intake. Patient reports having bowel movements. Patient requiring indwelling chisholm for retention. Patient encouraged to increase activity as tolerated. Patient with weakness and recommend PT/OT daily. Discussed with patient, son, and case management in detail about discharge planning once cleared and is being worked on with case management. Difficulty with social issues as family (son) is refusing patient to discharge to his home. Ortho now following and scheduled for kyphoplasty with biopsy today and patient is NPO. Will await report. Will need follow up outpatient with Dr. Hi oncology once discharged from [facility]. Patient needs outpatient PET scan. Due to multiple complex medical issues, prognosis is guarded. The impression and plan of care has been dictated as a scribe by Deepa Hill, Nurse Practitioner as directed. MD Candy I have performed a history and examination and MDM of this patient, discussed the same with the dictator, and will be documented as a scribe. Based on total visit time, I have performed more than 50% of the visit. Objective - Vital Signs Vital signs: Vital Signs Temp 98.7 F 02/07/22 05:00 Pulse 92 02/07/22 05:00 Resp 16 02/07/22 05:00 BP 147/77 02/07/22 05:00 Pulse Ox 96 02/07/22 05:00 FiO2 Intake & Output 02/06/22 02/07/22 02/07/22 18:59 06:59 18:59 Intake Total 900 50 Output Total 200 200 Balance -200 700 50 Intake: IV 50 Intake, IV Titration 900 Amount Sodium Chloride 0.9% 1, 900 000 ml @ 50 mls/hr IV . Q20H [facility] Rx#:[id number] Output: Urine 200 200 Other: Voiding Method Indwelling Catheter Indwelling Catheter - Labs CBC & Chem 7: 02/06/22 05:27 02/06/22 05:33
--- NOTE | 2022-02-07 12:48 | XR ---
Fluoroscopy History: Kyphoplasty T10 55 seconds of fluoroscopic time and 2 films are submitted for Kyphoplasty T10 .
[2022-02-08] MEDS: SODIUM CHLORIDE 0.9% 1,000 ML IV SCH ×2 (04:45→20:07)
[2022-02-08] MEDS: HYDROmorphone 0.5 MG/0.5 ML SYRINGE IVP PRN (04:46)
[2022-02-08] MEDS: HEPARIN SODIUM,PORCINE/PF 5,000 UNIT/0.5 ML SYRINGE SQ SCH ×2 (09:13→20:05)
[2022-02-08] MEDS: SENNOSIDES-DOCUSATE SODIUM 1 EACH TAB PO SCH ×3 (09:13→20:11)
[2022-02-08] MEDS: MEGESTROL 400 MG/10 ML CUP PO SCH (09:13)
[2022-02-08] MEDS: HYDROcodone/APAP 10-325MG 1 EACH TAB PO PRN ×3 (09:13→20:05)
[2022-02-08] MEDS: PANTOPRAZOLE 40 MG/10 ML VIAL IVP SCH ×2 (09:13→20:05)
[2022-02-08 09:47] LABS: Basophils # (A) 0.01 X 10*3/uL (0.00-0.10); Basophils % (A) 0.2 %; Eosinophils # (A) 0 X 10*3/uL (0.04-0.35); Eosinophils % (A) 0 %; HCT 25.3 % (37.2-46.3); HGB 7.8 g/dL (12.0-15.0); Lymphocytes # (A) 0.67 X 10*3/uL (0.90-5.00); Lymphocytes % (A) 11.1 %; MCH 31.6 pg (27.0-32.0); MCHC 30.8 g/dL (32.0-37.0); MCV 102.4 fL (80.0-97.0); Mean Platelet Volume 12.2 fL (9.5-12.2); Monocytes # (A) 0.46 X 10*3/uL (0.20-1.00); Monocytes % (A) 7.6 %; NRBC Per 100 WBC 0 /100 WBCS (0.0-0.0); Neutrophils # (A) 4.83 X 10*3/uL (1.80-7.70); Neutrophils % (A) 80.1 %; Platelet Count 241 X 10*3/uL (140-440); RBC 2.47 X 10*6/uL (4.10-5.20); RDW 18.6 % (11.5-14.5); WBC 6.03 X 10*3/uL (4.50-10.00)
[2022-02-08 09:55] LABS: Magnesium 1.8 mg/dL (1.5-2.4)
[2022-02-08 09:56] LABS: African American GFR (CKD) 94.5 (60.0-200.0); Anion Gap 6.3 mmol/L (10.00-18.00); BUN/Creat Ratio 11.36 Ratio (12.00-20.00); Blood Urea Nitrogen 7.5 mg/dL (9.0-27.0); Calcium 7.6 mg/dL (8.7-10.3); Non-African American GFR(CKD) 81.6 (60.0-200.0); Potassium 3.4 mmol/L (3.5-5.5)
--- NOTE | 2022-02-08 10:52 | P.PN ---
Subjective Progress Note Date: 02/08/22 Principal diagnosis: Status post T10 kyphoplasty with biopsy Patient is examined at bedside, she is resting comfortable at this time. She is having minimal discomfort at this time. She denies any headaches, lightheadedness, chest pain or shortness of breath. Objective - Vital Signs Vital signs: Vital Signs Temp 98.3 F 02/08/22 04:37 Pulse 83 02/08/22 04:37 Resp 16 02/08/22 04:37 BP 118/73 02/08/22 04:37 Pulse Ox 95 02/08/22 04:37 FiO2 Intake & Output 02/07/22 02/08/22 02/08/22 18:59 06:59 18:59 Intake Total 600 Output Total 402 100 Balance 198 -100 Intake: IV 600 Output: Urine 400 100 Estimated Blood Loss 2 Other: Voiding Method Indwelling Catheter - Exam General orthopedic exam: Bandages in good position and condition, no drainage visualized Range of motion intact in all major muscle groups of bilateral upper and lower extremity is, no focal deficits appreciated Neurovascular intact in the bilateral upper and lower extremities - Labs CBC & Chem 7: 02/08/22 05:47 02/08/22 05:47 Labs: Abnormal Lab Results - Last 24 Hours (Table) 02/08/22 02/08/22 Range/Units 05:47 05:47 RBC 2.47 L (4.10-5.20) X 10*6/uL Hgb 7.8 L (12.0-15.0) g/dL Hct 25.3 L (37.2-46.3) % MCV 102.4 H (80.0-97.0) fL MCHC 30.8 L (32.0-37.0) g/dL RDW 18.6 H (11.5-14.5) % Immature Gran # 0.06 H (0.00-0.04) X 10*3/uL Lymphocytes # 0.67 L (0.90-5.00) X 10*3/uL Eosinophils # 0 L (0.04-0.35) X 10*3/uL Potassium 3.4 L (3.5-5.5) mmol/L Chloride 114 H (96-109) mmol/L Anion Gap 6.30 L (10.00-18.00) mmol/L BUN 7.5 L (9.0-27.0) mg/dL BUN/Creatinine Ratio 11.36 L (12.00-20.00) Ratio Glucose 149 H (70-110) mg/dL Calcium 7.6 L (8.7-10.3) mg/dL Assessment and Plan Assessment: Postoperative day #1 status post T10 kyphoplasty with biopsy Plan: On an orthopedic standpoint, the patient remains stable at this time Recommend follow-up with oncology with regards to biopsy results and further treatment Please contact our service with any further questions Time with Patient: Less than 30
[2022-02-08] MEDS ORDERED: Potassium Replacement Protocol 1 EACH MISC MISCELLANE PRN (11:48)
[2022-02-08] MEDS: POTASSIUM CHLORIDE ER 20 MEQ TAB.ER PO SCH ×2 (13:01→13:02)
--- NOTE | 2022-02-08 17:20 | P.PN ---
Subjective Progress Note Date: 02/08/22 02/01/2022 This is a 81 year old female who was admitted with uncontrolled pain and undergoing testing with recent diagnosis of metastatic malignancy versus multiple myeloma. Patient has had testing done at other facilities outpatient and awaiting results. Patient with uncontrolled pain and overall weakness with decreased appetite. Patient was started on Marinol and have also made adjustments to pain medications. Encouraged increased activity as tolerated and awaiting PT/OT evaluation. ONcology following and awaiting medical records. Afebrile and denies chest pain or shortness of breath. Continue gentle hydration and encouraged oral intake. Will order repeat am labs. 02/02/2022 She is seen in follow-up today with reports of continued pain. Patient also reports that she has not had a bowel movement in 5 days and will add laxatives including suppository. Encouraged oral intake and increased activity as tolerated. Patient to be seen by PT/OT. Possible ECF being planned. Son requesting hospice informational. Reports of being unable to care for her in the home as he is leaving out of the country for a few months. Patient is demanding a diagnosis and better pain control while here inpatient. Reports from [place] continue to be pending. Oncology following and awaiting reports as well as she was following outside of the system for testing. Patient is afebrile and denies chest pain or shortness of breath. No reports of nausea or vomiting just not much of an appetite. Started on Marinol. Case management following. 02/03/2022 Patient is seen and evaluated in follow-up today and was given a suppository and reports to having a bowel movement. Patient continues to report pain that is not being controlled. [place] being increased. Encouraged limiting use of IV pain medications. Encouraged oral intake and increased activity as tolerated. Patient with significant weakness and muscle wasting and not eating very well with concerns of possible metastatic disease. Son Saul here today and with concerns of pain not being managed and options for treatment plan and possible ECF vs hospice being considered. Lengthy discussion was had with son, patient, and corrections caseworker at bedside. Patient has been recently going to multiple hospitals and not satisfied with the care receiving so came here to [facility] for evaluation. ONcology is following. Will consult ortho and appreciate input and r ecommendations. PT/OT to evaluate and possible ecf being planned. 02/04/2022 Patient is seen and evaluated today reporting that her pain is somewhat better controlled on the larger dose of [place]. Patient continues to use IV pain medications as needed. Patient is reporting that her pain is waxing and waining but mostly getting more severe once the medication wears off. Patient reports of feeling tired. Encouraged the patient to get up out of bed and continue PT/OT therapy. Encouraged oral intake. Awaiting ortho consult. Afebrile and denies chest pain or shortness of breath. Case management following and discussing options of discharge with patient and son Saul. 02/05/2022 Patient is seen and evaluated this morning when no significant changes. Patient continues to report her pain and continued on [place] along with IV pain medications. Patient needs encouragement on getting up and increasing activity as tolerated. Recommend PT/OT therapy daily. Orthopedics Dr. Leyva consul yasir and evaluated the patient today recommending CT of the spine which is currently pending and discussion of possible kyphoplasty with biopsy although awaiting images. Case management is following and working on possible rehab as well. Oncology following and to discuss further with son about overall treatment plan. Patient is somewhat of a poor historian and changes her stories often and does not recall a lot of what the doctors are telling her. Patient is known to fail for outpatient follow-up. Poor social support and son refusing to have her come back home. Patient was agreeable to rehab although this changes daily. Patient is not agreeable to hospice but would like to obtain some form of diagnosis her overall prognosis. Will await orthopedic recommendations. Patient is afebrile denies chest pain or shortness of breath. Patient is eating and will continue to encourage oral intake. Patient denies any nausea or vomiting at this time. 02/06/2022 Patient is seen today and sitting up in the chair this morning. Patient being followed by oncology along with orthopedics. After review of the CT images, ortho not planning for kyphoplasty or biopsy at this time. Oncology discussing further about getting a biopsy with ortho for possible confirmed diagnosis. Patient is agreeable with this. Patient continues to report uncontrolled pain and medications being adjusted. Patient had chisholm catheter placed for retention and will continue for now. Encouraged oral intake and increased activity as tolerated. Patient is afebrile and denies chest pain or shortness of breath. Patient is reporting some swelling of the right upper extremity and doppler is ordered and pending. 02/07/2022 Patient is seen in follow up today and is post kyphoplasty with biopsy with ortho. Patient is reporting back pain. Patient to continue working with physical therapy and unsure if will require a brace. LSO per ortho. Patient with decreased urine output and not eating or drinking very much. Will increase IV fluids slightly. Encouraged oral intake. PT/OT to re-eval in the am. To discuss with case management and oncology about discharge planning and will be planning for ecf. Afebrile and denies chest pain or shortness of breath. Review of systems: Constitutional: reports of fatigue, no fever, or chills Cardiovascular: No reports of chest pain or palpitations Respiratory: no reports of shortness of breath and cough GI: no reports of nausea, no vomiting, reports having bowel movements, reports no appetite : No reports of dysuria or retention, patient is retaining needing chisholm Neurovascular: reports of generalized weakness and overall body aches and pain , back pain All medications have been reviewed PHYSICAL EXAMINATION: GENERAL: The patient is alert and oriented x3, a poor historian, Well developed, well nourished. HEENT: Pupils are round and equally reacting to light. EOMI. no scleral icterus. No conjunctival pallor. Normocephalic, atraumatic. No pharyngeal erythema. No thyromegaly. CARDIOVASCULAR: S1 and S2 muffled PULMONARY: diminished breath sounds bilaterally with some scattered rhonchi noted. ABDOMEN: soft. mildly tender. less distended, normoactive bowel sounds. No palpable organomegaly. MUSCULOSKELETAL: No joint swelling or deformity. EXTREMITIES: No cyanosis, clubbing, or pedal edema. muscle wasting noted NEUROLOGICAL: Gross neurological examination did not reveal any focal deficits. diffuse weakness SKIN: No rashes. 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 Ortho following and is post kyphoplasty of T10 with biopsy today and stable. To discuss with ortho about lso brace on discharge. patient needs encouragement with increased activity and oral intake. Urine output noted to be low and will slightly increase IV hydration. Follow up with am labs. Patient will follow up with Dr. Hi oncology once discharged from [facility]. Patient needs outpatient PET scan. Due to multiple complex medical issues, prognosis is guarded. The impression and plan of care has been dictated as a scribe by Deepa Hill, Nurse Practitioner as directed. MD Candy I have performed a history and examination and MDM of this patient, discussed the same with the dictator, and will be documented as a scribe. Based on total visit time, I have performed more than 50% of the visit. Objective - Vital Signs Vital signs: Vital Signs Temp 98.3 F 02/08/22 04:37 Pulse 83 02/08/22 04:37 Resp 16 02/08/22 04:37 BP 118/73 02/08/22 04:37 Pulse Ox 95 02/08/22 04:37 FiO2 Intake & Output 02/07/22 02/08/22 02/08/22 18:59 06:59 18:59 Intake Total 600 Output Total 402 100 Balance 198 -100 Intake: IV 600 Output: Urine 400 100 Estimated Blood Loss 2 Other: Voiding Method Indwelling Catheter - Labs CBC & Chem 7: 02/08/22 05:47 02/08/22 05:47 Labs: Abnormal Lab Results - Last 24 Hours (Table) 02/08/22 02/08/22 Range/Units 05:47 05:47 RBC 2.47 L (4.10-5.20) X 10*6/uL Hgb 7.8 L (12.0-15.0) g/dL Hct 25.3 L (37.2-46.3) % MCV 102.4 H (80.0-97.0) fL MCHC 30.8 L (32.0-37.0) g/dL RDW 18.6 H (11.5-14.5) % Immature Gran # 0.06 H (0.00-0.04) X 10*3/uL Lymphocytes # 0.67 L (0.90-5.00) X 10*3/uL Eosinophils # 0 L (0.04-0.35) X 10*3/uL Potassium 3.4 L (3.5-5.5) mmol/L Chloride 114 H (96-109) mmol/L Anion Gap 6.30 L (10.00-18.00) mmol/L BUN 7.5 L (9.0-27.0) mg/dL BUN/Creatinine Ratio 11.36 L (12.00-20.00) Ratio Glucose 149 H (70-110) mg/dL Calcium 7.6 L (8.7-10.3) mg/dL
[2022-02-08 19:45] VITALS: TEMP 98.2
[2022-02-09] MEDS: HYDROmorphone 0.5 MG/0.5 ML SYRINGE IVP PRN (00:12)
--- NOTE | 2022-02-09 07:28 | FL ---
Intraoperative/procedural fluoroscopic services were provided. Total fluoroscopy time is 55 seconds w ith a total of 4 submitted images to PACS. Please see the operative/procedural note for further detai ls.
[2022-02-09] MEDS: MEGESTROL 400 MG/10 ML CUP PO SCH (08:01)
[2022-02-09] MEDS: HEPARIN SODIUM,PORCINE/PF 5,000 UNIT/0.5 ML SYRINGE SQ SCH (08:01)
[2022-02-09] MEDS: SODIUM CHLORIDE 0.9% 1,000 ML IV SCH (08:01)
[2022-02-09] MEDS: PANTOPRAZOLE 40 MG/10 ML VIAL IVP SCH (08:01)
--- NOTE | 2022-02-09 08:04 | P.PN ---
Progress Note - Text Progress Note Date: 02/09/22 [facility] Progress Note DOS: 02/07/2022 POD:2 SUBJECTIVE: patient doing well states she feels better states she thinks the kyphoplasty help her with pain denies any numbness tingling denies any other pain currently. OBJECTIVE: vital signs stable General: AOX3, NAD Incision CDI Motor Exam: RUE: 06/03 SA, EF, EE, WF, WE, Intrinsic, [employer] LUE: /5 SA, EF, EE, WF, WE, Intrinsic, [employer] RLE: 06/03 HF, KE, KF, DF, PF, EHL, FHL LLE: /5 HF, KE, KF, DF, PF, EHL, FH global weakness no focal deficits Reflexes: 2/4 in UE and LE b/l SILT C5-T1 and L2-S1 Dermatomal deficit: [] +distal pulses palpable Negative hoffmans b/l Negative babinski b/l No clonus ASSESSMENT: 81-year-old female postop day 3 T10 See with kyphoplasty PLAN: 1. pain control as needed 2. await pathology 3. PT/OT, OK for up and about. Brace when up if ordered. No BLTs. No lifting >5lbs 4. TEDs, SCDs, Early ambulation 5. no further orthopedic surgical intervention at this time. We will sign off reconsult with any issues
[2022-02-09] MEDS ORDERED: ACETAMINOPHEN TAB 325 MG TAB PO PRN (08:48)
[2022-02-09 09:01] LABS: African American GFR (CKD) 92.9 (60.0-200.0); Anion Gap 10.2 mmol/L (10.00-18.00); BUN/Creat Ratio 12.71 Ratio (12.00-20.00); Blood Urea Nitrogen 8.9 mg/dL (9.0-27.0); Calcium 7.9 mg/dL (8.7-10.3); Carbon Dioxide 19.8 mmol/L (20.0-27.5); Non-African American GFR(CKD) 80.1 (60.0-200.0); Potassium 3.9 mmol/L (3.5-5.5)
[2022-02-09] MEDS: SENNOSIDES-DOCUSATE SODIUM 1 EACH TAB PO SCH (11:19)
[2022-02-09 11:59] VITALS: BP 103/63; PULSE 82; RESP 18
--- NOTE | 2022-02-09 12:59 | P.DS ---
Providers Date of admission: 01/29/22 19:55 Expected date of discharge: 02/09/22 Attending physician: Bette Ny Consults: 01/29/22 19:53 Consult Physician Routine Consulting Provider: Casa Hi Consult Reason/Comments: H/o metastatic cancer Do you want consulting provider notified?: Yes, Notify in am 02/04/22 05:12 Consult Physician Urgent Consulting Provider: Don Leyva Consult Reason/Comments: compression fractures with lesions concerning for metastatic dx. 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 Patient will follow-up with Dr. Waters in the outpatient setting upon discharge. Patient is to follow- up with orthopedics in the outpatient setting in 2 weeks as scheduled. Patient will also be following up outpatient with oncology for biopsy results. Patient is agreeable and understands she will not seek any treatment involving chemotherapy or radiation during inpatient rehab and will follow-up in the outpatient setting once discharged from [facility]. Total time taken is greater than 35 minutes. Hospital course This is a 81-year-old male who was recently admitted with uncontrolled pelvic and back pain recently been undergoing testing in the outpatient setting and a PET scan was scheduled although the son canceled and brought the patient to the emergency department for further evaluation. Patient did have a bone marrow biopsy that was suggestive of adenocarcinoma with no origin. Patient being seen here by oncology along with orthopedics continued to have pain and underwent kyphoplasty of the T10 with biopsy. Patient is not looking to pursue chemoradiation treatment would just like a diagnosis and pain management. Patient will need follow-up with orthopedics in the outpatient setting and also oncology once discharged from [facility]. Patient also having some retention most likely due to medication effect as patient was requesting IV Dilaudid multiple times and requiring indwelling Chisholm catheter. Recommend to continue with Chisholm catheter until more mobile and then recommend trial void in the outpatient setting. Currently no reports of chest pain, shortness of breath, or palpitations. Patient is afebrile. No reports of nausea or vomiting and patient is tolerating diet. She was also started on Marinol to help increase her appetite as she has been losing weight and not eating very much over the last 2 months. Patient will be discharged to [facility] today. Guarded prognosis. Physical exam: Gen: This is a 81-year-old female awake, alert and oriented 3, thin built, elderly appearing female. HEENT: Head is atraumatic, normocephalic. Pupils equal, round. Sclerae is anicteric. NECK: Supple. No JVD. No lymphadenopathy. No thyromegaly. LUNGS: Diminished breath sounds bilaterally with no wheezes or rhonchi. No intercostal retractions. HEART: Regular rate and rhythm. No murmur. ABDOMEN: Soft. Mildly distended although nontender on exam. Bowel sounds are present. No masses. No tenderness. EXTREMITIES: No pedal edema. No calf tenderness. Some bilateral lower extremity edema with no pitting noted. NEUROLOGICAL: Patient is awake, alert and oriented x3. Cranial nerves 2 through 12 are grossly intact. Diffuse weakness Please refer to medication reconciliation sheet for a list of medications. The impression and plan of care has been dictated by Deepa Hill, Nurse Practitioner as directed. Dr. Anant MD I have performed a history and examination and MDM of this patient, discussed the same with the dictator, and agree with the dictator's assessment and plan as written ,documented as a scribe. Based on total visit time, I have performed more than 50% of the visit. Patient Condition at Discharge: Fair Plan - Discharge Summary New Discharge Prescriptions: No Action Hydrocodone/Acetaminophen [Hydrocodone/Acetaminophen 5-325] 1 tab PO Q6H PRN PRN Reason: Pain traMADol HCL 50 mg PO TID Meloxicam [Mobic] 15 mg PO DAILY Discharge Medication List Hydrocodone/Acetaminophen [Hydrocodone/Acetaminophen 5-325] 1 tab PO Q6H PRN 01/29/22 [History] Meloxicam [Mobic] 15 mg PO DAILY 01/29/22 [History] traMADol HCL 50 mg PO TID 01/29/22 [History] Follow up Appointment(s)/Referral(s): Casa Hi MD [STAFF PHYSICIAN] - 03/05/22 11:00 am Jose Juan Waters MD [Primary Care Provider] - 1-2 days Don Leyva DO [Doctor of Osteopathic Medicine] - 2 Weeks Activity/Diet/Wound Care/Special Instructions: Medical oncology Dr. Hi. Appointment March 05, 2022 at 10 AM at the [email or web address] office, [place], [place], [address]. Please contact office at [phone] 1-2 weeks prior to appointment to schedule a PET scan if wanting to pursue further workup. Spine Discharge and Recovery Instructions Date of Surgery: 02/07/2022 Diagnosis: T10 pathological compression fracture 2. Back pain 3. Mets vs myeloma vs lymphoma Procedure: 1. T10 biopsy with kyphoplasty Medications: See medication list All medication refills should be obtained through your primary care doctor or your clinic spine surgeon. Please discuss prescription refills at your follow up appointment. Do not call the hospital for medication refills. Dressing: Leave your dressing in place for a total of 5 days post operatively. Then you may remove your dressing and leave open to air. Keep the area clean and if not able to keep area clean, then cover with sterile gauze and tape. Showering: You may shower 3 days after your procedure allowing soap and water to run over incision. Do not scrub. Do not soak. Blot dry. Follow up: Please confirm a follow up appointment with your surgeon 3 weeks post operatively. Please make an appointment to follow up with your PCP in 1-2 weeks after surgery for evaluation 3 phase, 3-week plan POST OP WEEKS 1-3 1. Lifting/carrying/pushing/pulling limited to less than 5 pounds. 2. Do not sit for longer than 15 minutes at one time. Get up and walk around. Prolonged sitting is NOT advised. If you lay down, see if you can tolerate laying down on you front (belly side) 3. Walk for periods of 15 minutes = 1 mile but no longer; do it multiple times times each day. 4. Ice your low back after activity. POST OP WEEKS 3-6 1. Lifting limited to less than 20 pounds. 2. Do not sit for longer than 30 minutes at a time. Frequently change positions. Use a sit-to stand workstation or take frequent breaks from sitting if you have returned to work. 3. Walk for 30 minutes each day. If possible, do these three or more times a day POST OP WEEKS 6+ At your 6-week appointment we will give you a physical therapy referral to focus on a core stabilization and strengthening program. You should also work on leg & buttock strengthening, hamstring & quadriceps stretching, and continue a low impact aerobic activity program such as swimming, walking, or riding a stationary bicycle. During the initial 6 weeks after your surgery, you are at the highest risk of re-injuring your spine. You should generally avoid BLTs (bending, lifting and twisting combination motions) and follow the above guidelines to reduce the chance of reinjury. You can anticipate post op appointments in our office at approximately 3 weeks and 6 weeks after your surgery. INCISION CARE: If your incision is not draining you do NOT need to cover it with a dressing. Keep your incision clean, dry and intact. In most cases, we apply skin glue, rakel or sutures to the incision at the time of surgery. This will be like a crust or have the appearance of a scab and will fall off in time on its own. The stitches or rakel need to be removed at 3 weeks post op appointment. You may begin to shower 3 days after surgery (this allows the glue to villalpando well). However, please avoid scrubbing the incision site or peeling off any of the skin glue. This will ensure optimal healing of your incision. Also, during this time avoid soaking the incision area in water - this includes swimming pools, hot tubs or baths. No ointments, lotions or oils on the incision until your surgeon allows. Leave rakel, sutures or glue in place. Neurological dysfunction that comes on suddenly can also be a sign of a stroke. Below some common symptoms of a stroke are listed: B - balance difficulty such as sudden onset walking or leaning to one side - N EW E - eye problem such as sudden double vision or trouble seeing on one side - NEW F - Facial weakness or numbness on one side - NEW A - Arm or leg weakness or numbness on one side - NEW S - Slurred speech or difficulty with word finding - NEW T - Time is BRAIN! Call 911 as soon as you recognize these symptoms Diet: Consume a regular diet rich in vegetables and lean protein such as chicken or fish. You should consume in a ratio of approximately 20% fats|40% carbohydrates|40%protein. Vegetables, sweet potatoes, brown rice or quinoa are examples of good carbohydrates. Chips, white bread, cookies and sweets/sugar are examples of bad carbohydrates. Limit your bad carbs, go wild with good carbs. "Life's Simple 7" Guidelines as per [employer] These will help you reclaim your life after surgery and chief engineer's helper in your recovery, keeping in mind your restrictions. (1) Get Active. Physical activity can help people lose weight, control high blood pressure and cholesterol, feel emotionally better, and sleep better. (2) Control Cholesterol. Avoid a diet high in saturated fat, trans fat, & cholesterol. Limit whole milk & cream, ice cream, butter, egg yolks, processed meats (like sausage and hot dogs), and fatty meats. Choose healthy foods that are low in saturated fat, trans fat and cholesterol which include: Fruits and vegetables, fiber rich grain products (like whole grain pasta and brown rice), lean meat such as chicken, fish, nuts, seeds, and legumes. (3) Eat Better. Eat small portions. Shop at the grocery with a list and do not stray from it. Tips for a healthy diet include: Limit sodium intake to less than 1500mg daily, avoid prepackaged, processed, and fast foods, choose a diet rich in fruits, vegetables, and whole grain, high fiber foods, and limit saturated & cholesterol in your diet. (4) Manage Blood Pressure. If you have high blood pressure, you should have a cuff at home so that you can check your blood pressure regularly. Be sure you have a good cuff. An arm one is generally better than a wrist one. Bring the cuff to a doctor's appointment to validate that the measurements that your cuff are taking are accurate. Take your blood pressure twice daily when you are sitting down and relaxing. Record the numbers in a log and bring this log with you to your doctors' appointments. (5) Lose Weight if your BMI is above 25. A healthy BMI is between 19-25. To calculate Your BMI, you may use a Standard BMI Calculator on the NIH BMI website: <www.nhlbi.nih.gov/guidelines/obesity/BMI/bmicalc.htm>. Weigh oneself daily. If you are overweight, set a goal to lose weight. A pound a week loss if needed is a good target. (6) Reduce Blood Sugar. Limit foods and liquids with "added sugars." (Added sugars include sucrose, fructose, glucose, maltose, dextrose, high fructose corn syrup, corn syrup, concentrated fruit juice and honey). (7) Stop Smoking. If you smoke, quitting smoking is one of the best things that you can do for your health. Smoking increases your risk of heart attack, stroke, and peripheral vascular disease, which is a build-up of plaque in your arteries. Please discard all the cigarettes and lighters in your house. Have a plan for what you will do when you have the urge to smoke. Direct and second- hand smoke shortens your life as well as the lives of your family, friends and others around you. For your health and the health of those around you, please consider quitting! Proper Bending Body Mechanics: Maintain a wide stance with one foot slightly in front of the other. Keep your back straight. Bend utilizing the strength in your hips and knees. Do not bend at the waist. Maintain the lifted object at your waist-level close to your body. Avoid lifting weight that causes immediately pain or pain anywhere in the body afterwards. Smoking/Nicotine If there was ever one thing that you could do to increase your overall health, decrease your risk of cardiovascular problems by about 39% the second you make the choice, it is to STOP SMOKING. Your body's most instant gratification is the second you stop smoking. We have all heard the studies, read the articles but it is true, smoking is extremely bad for your overall health, and moreover it is detrimental to your bone health. Nicotine, IN ANY FORM, kills bone cells, prevents your body from healing fractures, and significantly prolongs healing after surgery. In spine surgery specifically, it increases your risk of not healing your bones to create a fusion and increases your risk of having a revision surgery due to this up to 60%. I know it is hard. I know it feels impossible. But there are ways. Take control of your life. We are here to help you through it. And when you are ready, ask us and we can direct you to help if you desire. Use the START Plan to Quit Smoking (please visit the Helpguide.org website listed below for more information): S = Set a quit date. Choose a date within the next 2 weeks, so you have enough time to prepare without losing your motivation to quit. If you mainly smoke at work, quit on the weekend, so you have a few days to adjust to the change. T = Tell family, friends, and co-workers that you plan to quit. Let your friends and family in on your plan to quit smoking and tell them you need their support and encouragement to stop. Look for a quit petrona who wants to stop smoking as well. You can help each other get through the rough times. A = Anticipate and plan for the challenges you'll face while quitting. Most people who begin smoking again do so within the first 3 months. You can help yourself make it through by preparing ahead for common challenges, such as nicotine withdrawal and cigarette cravings. R = Remove cigarettes and other tobacco products from your home, car, and work. Throw away all your cigarettes (no emergency pack!), lighters, ashtrays, and matches. Wash your clothes and freshen up anything that smells like smoke. Shampoo your car, clean your drapes and carpet, and steam your furniture. T = Talk to your doctor about getting help to quit. Your doctor can prescribe medication to help with withdrawal and suggest other alternatives. If you can't see a doctor, you can get many products over the counter at your local pharmacy or grocery store, including the nicotine patch, nicotine lozenges, and nicotine gum. Resources for Quitting Smoking: <https://www.[facility].gov/documents/[facility]/Quit_Tobacco_Resources_for_patients_313480_7.pdf> Supplementation: Take recommended dosages of Vitamin D and Calcium to help fortify your bones and help them to heal. See your health maintenance packet for dosages and recommended levels. DVT/VTE prophylaxis: You will be given compression stockings from the hospital. Wear these daily for the first two weeks after surgery. You may take them off at night. You may be prescribed a medication to help thin your blood. Take this as directed. If you are not prescribed this medication, early and frequent ambulation has been shown to be the best prophylaxis to deep vein thrombosis and sequelae related to this event.
[2022-02-09] MEDS: HYDROcodone/APAP 10-325MG 1 EACH TAB PO PRN (14:00)
== END 2022-02-09 15:25 | DRG 477 ==
LOC: EC 16:14 → 5NMEDONC 19:55
PROVIDERS: ADMIT Hospitalist; ATTEND Hospitalist
PROC: 0PB40ZX Excision of Thoracic Vertebra, Open Approach, Diagnostic (ICD-10-PCS; 2022-02-07)
PROC: 0PU40JZ Supplement Thoracic Vertebra with Synthetic Substitute, Open Approach (ICD-10-PCS; principal; 2022-02-07 07:33)
DX: M84.58XA Pathological fracture in neoplastic disease, other specified site, initial encounter for fracture (principal); E43 Unspecified severe protein-calorie malnutrition; C79.51 Secondary malignant neoplasm of bone; J98.11 Atelectasis; C80.1 Malignant (primary) neoplasm, unspecified; D47.2 Monoclonal gammopathy; R00.0 Tachycardia, unspecified; R26.9 Unspecified abnormalities of gait and mobility; T50.905A Adverse effect of unspecified drugs, medicaments and biological substances, initial encounter; R33.0 Drug induced retention of urine; R62.7 Adult failure to thrive; G89.3 Neoplasm related pain (acute) (chronic); Z63.8 Other specified problems related to primary support group; Z79.1 Long term (current) use of non-steroidal anti-inflammatories (NSAID); Z98.1 Arthrodesis status; Z20.822 Contact with and (suspected) exposure to COVID-19; Z28.311 Partially vaccinated for COVID-19; Z28.21 Immunization not carried out because of patient refusal; Z68.20 Body mass index [BMI] 20.0-20.9, adult; Z79.899 Other long term (current) drug therapy
CPT/HCPCS: 36415; 71046; 72070; 72128; 72131; 74177; 80048; 80053; 81003; 83690; 83735; 83880; 84484; 85025; 87635; 88307; 88311; 93005; 96374; 96376; 99285